=== PATIENT | female | born 1940 | race Caucasian/White ===

== ENCOUNTER → 2018-07-27 15:14 | Outpatient (CLI) | payer MEDICARE, OTHER, SELFPAY ==
--- NOTE | 2018-07-27 15:18 | BI_ITS ---
MAMMOGRAPHY - BILATERAL SCREENING REASON FOR EXAM: Female, 77 years old. Routine annual screening examination. PERTINENT HISTORY: Non-contributory. Remote bilateral breast biopsies and left excisional breast biopsy. History of mantle cell lymphoma. TECHNIQUE: Digital bilateral breast calixto (3D mammographic acquisition) in the CC and MLO projections. 2-D mediolateral oblique (MLO) and craniocaudad (CC) views of both breasts were obtained. CAD: Full Field Digital Mammography with Computer Added Detection was performed. COMPARISON: Comparison is made with prior examination dated June 10, 2016. FINDINGS: Breast Composition: The breasts are almost entirely fatty. There are no dominant masses or suspicious calcifications. Once again, a tissue clip marker is seen in the retroareolar region of the right breast. No other significant abnormalities are identified. There has been no significant change since the prior study. BI/SCREENING MAMM (CAD), BILAT IMPRESSION: Stable bilateral screening mammogram. Yearly follow-up mammogram recommended. (A) ASSESSMENT CATEGORY: BIRADS Category 2: Benign. A letter regarding these results will be sent to the patient by the facility within 30 days. Approximately 10% of breast cancers are not detected by mammography. A normal mammogram should not delay biopsy of a clinically suspicious abnormality. [id number] Electronically Signed: Javier Walden MD at 13:11 EST Tel [phone], Service support ,
== END ==
PROVIDERS: Family Provider Student in an Organized Health Care Education/Training Program; PCP Student in an Organized Health Care Education/Training Program; Referring Provider Internal Medicine Hematology & Oncology; Visit Provider Internal Medicine Hematology & Oncology
DX: Z12.31 Encounter for screening mammogram for malignant neoplasm of breast (principal)
CPT/HCPCS: 77063; 77067

== ENCOUNTER 2019-05-28 17:42 | Emergency (ER) | payer MEDICARE, OTHER, SELFPAY ==
[2019-05-28 17:43] VITALS: BP 191/99; PULSE 106; RESP 18; TEMP 37.6; O2SAT 97; BMI 38.1
[2019-05-28 18:34] VITALS: O2SAT 98
--- NOTE | 2019-05-28 18:34 | RAD_ITS ---
STUDY: X-RAY CHEST REASON FOR EXAM: Female, 78 years old. Palpitations TECHNIQUE: Single AP portable view of the chest. COMPARISON: 06/20/2017. FINDINGS: The lungs are clear and expanded. There is no demonstrated pleural abnormality. Normal size heart. Normal mediastinum and hakan. Normal visualized pulmonary arteries. Normal visualized aortic arch and descending thoracic aorta. Normal visualized thoracic spine. Normal visualized ribs, clavicles, and shoulders. There is no demonstrated abnormality of the visualized soft tissue structures of the upper abdomen. RAD/Chest 1 View (Portable) IMPRESSION: Normal x-ray examination of the chest. Electronically Signed: Brian Palumbo MD at 18:45 EDT , Service support ,
--- NOTE | 2019-05-28 18:34 | EKG12_ITS ---
Test Reason : PALP Blood Pressure : / mmHG Vent. Rate : 091 BPM Atrial Rate : 091 BPM P-R Int : 148 ms QRS Dur : 084 ms QT Int : 372 ms P-R-T Axes : 075 054 066 degrees QTc Int : 457 ms Normal sinus rhythm Nonspecific ST abnormality Abnormal ECG Confirmed by YAIR FREEMAN ([id number]), senior editor ANGELLA GONG ([id number] on 06/03/2019 3:34:51 PM Referred By: JACEY Confirmed By:YAIR FREEMAN
[2019-05-28 19:11] LABS: Absolute Lymphocyte Count 1.25 X10^3/uL (0.83-4.51); Basophil# 0.02 X10^3/uL; Basophil% 0.4 % (0-1); Eosinophil# 0.11 X10^3/uL; Eosinophils% 2.3 % (0-5); Hematocrit 41.2 % (37-47); Hemoglobin 13.4 g/dL (12.0-15.0); Lymphocyte # 1.25 X10^3/ul (4.0); Lymphocyte % 25.8 % (19-41); Mean Corp Hgb Conc 32.5 g/dL (32-36); Mean Corpuscular Hgb 29.6 pg (27.0-32.0); Mean Corpuscular Volume 91.2 fL (81-99); Mean Platelet Vol. 10.4 fl (6.2-12.0); Monocyte# 0.41 X10^3/uL; Monocyte% 8.5 % (0-10); NRBC Flagged by Analyzer 0 % (0-5); Neutrophil # 3.04 X10^3/uL (2.7-7.7); Neutrophil % 62.8 % (47-70); Platelet Count 143 K/mm3 (150-450); RBC Distribution Width CV 13.7 % (11.6-14.6); RBC Distribution Width SD 46.1 fl (35.1-43.9); Red Blood Count 4.52 M/mm3 (4.2-5.4); White Blood Count 4.8 K/mm3 (4.4-11.0)
[2019-05-28 19:13] LABS: International Normalized Ratio 0.9; Prothrombin Time (Protime)PT. 12.3 SECONDS (11.7-14.9)
[2019-05-28 19:14] LABS: Partial Thromboplast Time 29.7 Seconds (24.1-36.2)
[2019-05-28 19:30] LABS: Anion Gap 7 (5-15); BUN 19 mg/dL (7-18); BUN/Creat Ratio 24.8 RATIO (10-20); Calcium,Total 9.4 mg/dL (8.5-10.1); Chloride 107 mmol/L (98-107); Creatinine, Serum 0.77 mg/dL (0.55-1.02); EST Glomerular Filtration Rate 77 mL/min (>60); Est Glom Filt Rate - Afr Amer 94 mL/min (>60); Estimated Creatinine Clearance 62.75 ml/min; Glucose 86 mg/dL (74-106); Potassium 3.5 mmol/L (3.5-5.1); Sodium Level 142 mmol/L (136-145); Thyroid Stim Hormone (TSH) 0.02 uIU/mL (0.358-3.74)
[2019-05-28 19:58] VITALS: BP 160/65; PULSE 73; RESP 19; O2SAT 94
--- NOTE | 2019-05-28 20:44 | ED.DCSUM_ITS ---
- ER Visit Summary Date of Service: 05/28/19 Chief Complaint: A. fib History of Present Illness: The patient is a 78 F who presents for possible atrial fibrillation. She says that for the past week she has had episodes of palpitations that last up to an hour or an hour and a half. She has had 4 episodes. She saw her doctor who ordered outpatient echocardiogram and cardiac monitoring. She presents today for continued symptoms. She has a history of hypothyroidism and takes Synthroid. She denies any history of coronary disease. She had a stress test 2 years ago which was normal. Physical Examination: Afebrile and vital signs unremarkable except for heart rate of 106. Heart rate is regular and rhythm. Lungs are clear. Abdomen soft. Skin appears normal. Alert and oriented. Test Results: EKG showed sinus rhythm at a rate of [address] changes. CBC, metabolic panel, troponin normal. TSH 0.02. Chest x-ray normal. Emergency Department Course and Treatment: Patient was placed on a monitor. She did not have atrial fibrillation here. I believe she is having palpitations, but will benefit from further work-up. She is not having anything that would require hospitalization. I was concerned given that her TSH was very low. I was concerned that she might be overtreated. I called her PCPs on-call partner, Dr. Coombs. She reviewed the patient's records from their office. It looks like her TSH has been stable for the past 6 days. She had outpatient testing and her thyroid medication was recently decreased. It would likely take several more weeks before she has a change in her TSH. She was advised to follow-up with her PCP tomorrow regarding her thyroid. She will also follow-up as planned for cardiac monitoring and outpatient testing. Return for any new or worsening issues. Treatment Plan: As above Disposition: Discharge Impression: 1. Palpitations 2. Hypothyroidism This note was generated with [employer] dictation software. It may contain incorrect words, spelling, and punctuation that were not noted in review of the chart prior to signing ED Disposition - Plan for ED Patient: Referrals: August Connor DO [Primary Care Provider] -
--- NOTE | 2019-05-28 20:48 | ED.DEP ---
ED Disposition - Plan for ED Patient: Instructions: Palpitations Referrals: August Connor DO [Primary Care Provider] -
== END 2019-05-28 20:55 | disposition home or self-care (01) ==
LOC: ED 18:52
PROVIDERS: Emergency Provider Emergency Medicine; Family Provider Student in an Organized Health Care Education/Training Program; PCP Student in an Organized Health Care Education/Training Program
DX: R00.2 Palpitations (principal); E03.9 Hypothyroidism, unspecified; I10 Essential (primary) hypertension; Z79.899 Other long term (current) drug therapy
CPT/HCPCS: 71045; 80048; 84443; 84484; 85025; 85610; 85730; 93005; 99284; A4216

== ENCOUNTER → 2019-06-07 12:56 | Outpatient (CLI) | payer MEDICARE, OTHER, SELFPAY ==
[2019-05-28 17:43] VITALS: BMI 38.1
--- NOTE | 2019-06-07 12:59 | ECHOD_ITS ---
Reason For Study: Palpitations Procedure This was a 2D Doppler, Color Flow transthoracic echocardiogram. Myocardial strain analysis was performed in this exam to aid in the assessment of cardiac function. Exam performed in department. Left Ventricle Normal size and thickness. The estimated ejection fraction is 55 %. No evidence for diastolic dysfunction. No regional wall motion abnormalities noted. Right Ventricle Normal RV size. Normal systolic function. Atria Normal left atrium. Normal right atrium. No doppler evidence for ASD. Mitral Valve There is no mitral valve stenosis. Trivial mitral valve insufficiency. Tricuspid Valve There is no tricuspid stenosis. Unable to estimate RV systolic pressure due to insufficient tricuspid regurgitant envelope. Trivial tricuspid valve insufficiency. Aortic Valve Trisinus/trileaflet aortic valve. There is no aortic stenosis. Trivial aortic valve insufficiency. Pulmonic Valve There is no pulmonic valvular stenosis. Trivial pulmonic valve insufficiency. Great Vessels Normal aortic root. Pericardium/Pleural No pericardial effusion. MMode/2D Measurements & Calculations LVIDd: 4.5 cm IVSd: 1.0 cm Ao root diam: 3.6 cm LVIDs: 2.7 cm LVPWd: 1.2 cm LA dimension: 3.8 cm RVDd: 3.1 cm FS: 39.2 % LAV(MOD-bp): 43.2 ml LA A4 area: 16.8 cm2 RA A4 area: 8.7 cm2 LAV(MOD-bp) Indexed: 24.1 ml/m2 LAV(MOD-sp2): 40.3 ml LAV(MOD-sp4): 46.9 ml Time Measurements MV dec time: 0.25 sec Doppler Measurements & Calculations MV E max hebert: 73.9 cm/sec Lat Peak E' Hebert: 11.1 cm/sec Med Peak E' Hebert: 7.6 cm/sec MV A max hebert: 124.6 cm/sec E/E' lat: 6.7 E/E' med: 9.7 MV E/A: 0.59 MV V2 max: 132.9 cm/sec MV P1/2t max hebert: 82.8 cm/sec Ao V2 max: 174.3 cm/sec MV max P.1 mmHg MV P1/2t: 90.6 msec Ao max P.2 mmHg MV V2 mean: 58.2 cm/sec MV dec slope: 267.8 cm/sec2 MV mean P.7 mmHg MVA(P1/2t): 2.4 cm2 MV V2 VTI: 27.5 cm LV V1 max: 130.5 cm/sec PA V2 max: 123.3 cm/sec LV V1 max P.8 mmHg PI dec slope: 124.6 cm/sec2 Interpretation Summary The estimated ejection fraction is 55 %. No evidence for diastolic dysfunction. Trivial aortic valve insufficiency. Trivial mitral valve insufficiency. Ordering Physician: August Connor Referring Physician: August Connor Performed By: Joey Moreno RCS
== END ==
PROVIDERS: Family Provider Student in an Organized Health Care Education/Training Program; PCP Student in an Organized Health Care Education/Training Program; Referring Provider Student in an Organized Health Care Education/Training Program; Visit Provider Student in an Organized Health Care Education/Training Program
DX: R00.2 Palpitations (principal)
CPT/HCPCS: 93306

== ENCOUNTER 2019-08-18 01:10 | Emergency (ER) | payer MEDICARE, OTHER, SELFPAY ==
[2019-08-18 01:11] VITALS: BP 197/95; PULSE 67; RESP 16; TEMP 36.6; O2SAT 97; BMI 38.0
--- NOTE | 2019-08-18 01:36 | US_ITS ---
HISTORY: RIGHT ABD PAIN X 9 DAYS WORSE AFTER EATING TECHNIQUE: Ty scale and color doppler imaging was performed of the pancreas, liver, and gallbladder. COMPARISON: A CT scan of the chest was performed on December 22, 2014. It demonstrates part of the appendix, most of the liver, most of the spleen, and an exophytic mass on the right kidney that likely represents a benign cyst. FINDINGS: # of images incl. paperwork: 91 Liver is normal in size and appearance. No gallstones, gallbladder wall thickening or biliary dilatation. Gallbladder wall measures 3 mm. Common bile duct measures 3 mm. No tenderness upon insonation the gallbladder. Visualized pancreas is normal in appearance. The right renal cyst, seen on the CT scan, is again demonstrated. It is diagnostic for a benign simple cyst. The remainder of the right kidney is normal. The cyst measures 3.3 x 4.4 x 3.7 cm. Visualized abdominal aorta has normal caliber. IVC is patent. Hepatopedal flow is present within the central portal vein. US/Abdomen Limited IMPRESSION: Normal Right upper quadrant ultrasound. at 0315 Reported and signed by: Eddy Dan MD Electronically Signed: Eddy Dan MD at 3:14 EST Tel , Service support ,
--- NOTE | 2019-08-18 01:36 | ED.VIS.GEN ---
History of Present Illness Chief Complaint: Abd Pain Narrative: This patient is a 78-year-old female who presents with abdominal pain. This has been progressive over about 9 days. She complains of burning epigastric pain with sharp right upper quadrant and right flank pain. She did see her primary care provider recently who ordered outpatient blood work and schedule an ultrasound which she is not scheduled for until August 26. She is concerned this may be her gallbladder. She reports nausea. Her pain is worse with eating. She has not noted any particular foods that worsen this. No vomiting. No diarrhea. No fevers. She does have a history of mantle cell lymphoma which is in remission Past Medical History - Allergies and Home Meds Allergies/Adverse Reactions: Allergies adhesive tape Adverse Reaction (Verified 08/18/19 01:11) Other SKIN IRRITATION banana Adverse Reaction (Verified 08/18/19 01:11) Upset Stomach PAIN KILLERS Adverse Reaction (Uncoded 08/18/19 01:11) Vomiting Primary Care Physician: August Connor DO [Primary Care Provider] - Past Medical History: - - Mantle cell lymphoma, hypertension, hyperlipidemia Surgical History: hysterectomy Smoking Status: Never smoker - Family History Maternal Family History: Family History (Last Reviewed 06/14/18 @ 10:59 by Maggie Beltran) Sister Pancreatic cancer Mother Leukemia Father Non Hodgkin's lymphoma Family History: Reports: Cancer Paternal Family History: Family History (Last Reviewed 06/14/18 @ 10:59 by Maggie Beltran) Sister Pancreatic cancer Mother Leukemia Father Non Hodgkin's lymphoma Family History: Reports: Cancer Sibling Family History: Family History (Last Reviewed 06/14/18 @ 10:59 by Maggie Beltran) Sister Pancreatic cancer Mother Leukemia Father Non Hodgkin's lymphoma Family History: Reports: Cancer, Heart Disease Review of Systems All systems negative except as indicated General: Denies: Fever Cardiovascular: Denies: Chest pain Respiratory: Denies: Dyspnea Gastrointestinal: Reports: Abdominal pain, Nausea. Denies: Vomiting, Diarrhea Skin: Denies: Rash Neurological: Denies: Headache Hematologic: Denies: Easy bruising Allergy: Denies: Uticaria Physical Exam Vital Signs/Narrative: Vital Signs Temp Pulse Resp BP Pulse Ox 08/18/19 01:11 97.9 F 67 16 197/95 H 97 Inital Vital Signs reviewed: Yes General: Well nourished, Well developed Head: Normocephalic Eyes: EOMI ENT: Moist mucous membranes Neck: Supple Cardiovascular: Regular rate, Regular rhythm Respiratory: No distress, CTA bilaterally Abdomen: Soft, Nontender - No reproducible tenderness on exam, Nondistended. Negative for: Jamison's sign Extremities: Nontender Skin: Normal color Neurological: Alert Psychological: Normal affect Diagnostic/Tx/Re-eval Impressions Abdomen Ultrasound 08/18/19 01:36 IMPRESSION: Normal Right upper quadrant ultrasound. at 0315 Reported and signed by: Eddy Dan MD Electronically Signed: Eddy Dan MD at 3:14 EST Tel , Service support , Abdomen/Pelvis CT 08/18/19 03:19 IMPRESSION: No acute intra-abdominal or pelvic disease. Individualized dose optimization techniques were used for this CT. at 0511 Reported and signed by: Eddy Dan MD Electronically Signed: Eddy Dan MD at 5:10 EST Tel , Service support , 08/18/19 01:36 Abdomen Limited [US] Stat 08/18/19 03:19 CT Abd [Abdomen/Pelvis W IV Cont ONLY] [CT] Stat Laboratory Results 08/18/19 08/18/19 01:45 01:45 WBC 4.5 RBC 4.63 Hgb 13.8 Hct 41.0 MCV 88.6 MCH 29.8 MCHC 33.7 RDW Std Deviation 43.7 RDW Coeff of Clair 13.6 Plt Count 120 L MPV 10.7 Immature Gran % (Auto) 0.200 Neut % (Auto) 72.5 H Lymph % (Auto) 13.0 L Gooding % (Auto) 11.2 H Eos % (Auto) 2.4 Baso % (Auto) 0.7 Absolute Neuts (auto) 3.3 Absolute Lymphs (auto) 0.59 L Nucleated RBC % 0 Sodium 139 Potassium 3.7 Chloride 106 Carbon Dioxide 25.0 Anion Gap 8 BUN 17 Creatinine 0.68 Estim Creat Clear Calc 62.42 Est GFR (MDRD) Af Amer 108 Est GFR (MDRD) Non-Af 89 BUN/Creatinine Ratio 25.1 H Glucose 114 H Calcium 9.6 Total Bilirubin 0.70 AST 23 ALT 32 Alkaline Phosphatase 86 Total Protein 7.2 Albumin 3.7 Globulin 3.5 Albumin/Globulin Ratio 1.1 Lipase 122 - Medical Decision Making Patient was given Toradol and Zofran with improvement in symptoms. Laboratory studies were unremarkable and right upper quadrant ultrasound was normal. Therefore I did also obtain a CT of the abdomen and pelvis for further evaluation which also shows no acute pathology. At this point the etiology of her symptoms is unclear but she does not appear to have acute life-threatening or surgical pathology. She was advised to follow-up as an outpatient. She was discharged. ED Disposition - Plan for ED Patient: Disposition: Home or Assisted Living Diagnosis: Abdominal pain Instructions: ABDOMINAL PAIN, Unknown Cause, (Female) Referrals: August Connor DO [Primary Care Provider] -
[2019-08-18] MEDS: Ondansetron 4 MG/2 ML Vial IV (01:57)
[2019-08-18] MEDS: 0.9% Normal Saline 1,000 ML 999 ML IV (01:57)
[2019-08-18] MEDS: Ketorolac 15 MG/ML Vial IV (01:59)
[2019-08-18 02:00] LABS: Absolute Lymphocyte Count 0.59 X10^3/uL (0.83-4.51); Absolute Neutrophil Count 3.3 X10^3/uL (2.0-7.7); Basophil# 0.03 X10^3/uL; Basophil% 0.7 % (0-1); Eosinophil# 0.11 X10^3/uL; Eosinophils% 2.4 % (0-5); Hemoglobin 13.8 g/dL (12.0-15.0); Lymphocyte # 0.59 X10^3/ul (4.0); Mean Corp Hgb Conc 33.7 g/dL (32-36); Mean Corpuscular Hgb 29.8 pg (27.0-32.0); Mean Corpuscular Volume 88.6 fL (81-99); Mean Platelet Vol. 10.7 fl (6.2-12.0); Monocyte# 0.51 X10^3/uL; Monocyte% 11.2 % (0-10); NRBC Flagged by Analyzer 0 % (0-5); Neutrophil # 3.29 X10^3/uL (2.7-7.7); Neutrophil % 72.5 % (47-70); POSITIVE DIFFERENTIAL YES; Platelet Count 120 K/mm3 (150-450); RBC Distribution Width CV 13.6 % (11.6-14.6); RBC Distribution Width SD 43.7 fl (35.1-43.9); Red Blood Count 4.63 M/mm3 (4.2-5.4); White Blood Count 4.5 K/mm3 (4.4-11.0)
[2019-08-18 02:02] LABS: Differential Indicated SCAN CRITERIA MET
[2019-08-18 02:11] LABS: ALB/GLOB Ratio 1.1 RATIO (0.9-2.4); AST(SGOT) 23 U/L (15-37); Alanine Aminotransfer ALT/SGPT 32 U/L (13-56); Albumin, Serum 3.7 g/dL (3.2-5.0); Alkaline Phosphatase 86 U/L (45-117); Anion Gap 8 (5-15); BUN 17 mg/dL (7-18); BUN/Creat Ratio 25.1 RATIO (10-20); Calcium,Total 9.6 mg/dL (8.5-10.1); Chloride 106 mmol/L (98-107); Creatinine, Serum 0.68 mg/dL (0.55-1.02); EST Glomerular Filtration Rate 89 mL/min (>60); Est Glom Filt Rate - Afr Amer 108 mL/min (>60); Estimated Creatinine Clearance 62.42 ml/min; Globulin 3.5 g/dL (2.2-4.2); Glucose 114 mg/dL (74-106); Lipase 122 U/L (73-393); Potassium 3.7 mmol/L (3.5-5.1); Protein, Total 7.2 g/dL (6.4-8.2); Sodium Level 139 mmol/L (136-145)
--- NOTE | 2019-08-18 03:19 | CT_ITS ---
HISTORY: RIGHT SIDED ABD PAIN X 9 DAYS WITH NAUSEA, HX MANTEL CELL CA, CHF, HTN, FATTY LIVER, PULMONARY HTN TECHNIQUE: Helically acquired images were obtained of the abdomen and pelvis following the intravenous administration of 100 ML of Isovue 300 Iodinated contrast. 2D reformats. No oral contrast was administered. A radiation dose optimization technique was used for this scan. COMPARISON: An abdominal ultrasound was performed [address] scan of the chest was performed on December 21, 2014. That study it extended down just below the adrenal glands. FINDINGS: # of images incl. paperwork: 407 LUNG BASES: Trace age-related fibrotic lung disease with minimal scarring. Borderline cardiomegaly. CT abdomen: Degenerative disc disease in lower lumbar spine facet arthropathy. The gallbladder remains. Liver, spleen, pancreas, and adrenal glands, are normal. An exophytic mass to the right kidney is consistent with a benign simple cyst was demonstrated on the ultrasound. The left kidney is normal. The aorta is diseased with calcific plaque, but without aneurysm or dissection. CT pelvis: No ascites is present. The uterus has been resected. The appendix is normal. Series 2 image 72. The bladder is decompressed. Diverticulosis is present within the sigmoid colon. No bowel obstruction. CT/Abdomen/Pelvis W IV Cont ONLY IMPRESSION: No acute intra-abdominal or pelvic disease. Individualized dose optimization techniques were used for this CT. at 0511 Reported and signed by: Eddy Dan MD Electronically Signed: Eddy Dan MD at 5:10 EST Tel , Service support ,
[2019-08-18 05:41] VITALS: BP 211/82; PULSE 62; RESP 16; O2SAT 94
== END 2019-08-18 05:42 | disposition home or self-care (01) ==
PROVIDERS: Emergency Provider Emergency Medicine; Family Provider Student in an Organized Health Care Education/Training Program; PCP Student in an Organized Health Care Education/Training Program
DX: R10.13 Epigastric pain (principal); R10.11 Right upper quadrant pain; I10 Essential (primary) hypertension
CPT/HCPCS: 74177; 76705; 80053; 83690; 85025; 96361; 96374; 96375; J7030; Q9967; A4216; J2405

== ENCOUNTER 2019-08-18 20:48 | Emergency (ER) | payer MEDICARE, OTHER, SELFPAY ==
[2019-08-18 01:11] VITALS: BMI 38.0
[2019-08-18 20:49] VITALS: BP 153/86; PULSE 68; RESP 16; TEMP 36.8; O2SAT 96; BMI 83.7
--- NOTE | 2019-08-18 23:05 | ED.DCSUM_ITS ---
History of Present Illness Chief Complaint: Abd Pain Informant: Patient Narrative: Stated over the last week or so she has been having upper abdominal pain. It is dullness and achy pain. It is worse with eating foods. Every time she eats she gets worsening pain to this area. She was started on a antacid by her family doctor as an outpatient. She has not had much relief. She is never had a stomach ulcer or gastritis. She does have mantle cell lymphoma that is in remission at this time. She denies any nausea or vomiting or diarrhea. She was seen in the emergency department less than 1 day ago. She had normal lab work right upper quadrant ultrasound and CAT scan of the abdomen pelvis with IV contrast. She was given Toradol at that time. She was discharged to follow-up as an outpatient. 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 She comes back tonight for similar pain that is slightly worse. - Past Medical History (1) Abdominal pain Status: Acute (2) Chest pain Status: Acute (3) Anemia Status: Chronic (4) Mantle cell lymphoma Status: Chronic (5) Thrombocytopenia Status: Chronic Past Medical History - Allergies and Home Meds Allergies/Adverse Reactions: Allergies adhesive tape Adverse Reaction (Verified 08/18/19 20:49) Other SKIN IRRITATION banana Adverse Reaction (Verified 08/18/19 20:49) Upset Stomach PAIN KILLERS Adverse Reaction (Uncoded 08/18/19 20:49) Vomiting Primary Care Physician: August Connor DO [Primary Care Provider] - Prior records reviewed: Yes Past Medical History: - - see Problem list Surgical History: hysterectomy Smoking Status: Never smoker Alcohol: None Drugs: None - Family History Maternal Family History: Family History (Last Reviewed 06/14/18 @ 10:59 by Maggie Beltran) Sister Pancreatic cancer Mother Leukemia Father Non Hodgkin's lymphoma Family History: Reports: Cancer Paternal Family History: Family History (Last Reviewed 06/14/18 @ 10:59 by Maggie Beltran) Sister Pancreatic cancer Mother Leukemia Father Non Hodgkin's lymphoma Family History: Reports: Cancer Sibling Family History: Family History (Last Reviewed 06/14/18 @ 10:59 by Maggie Beltran) Sister Pancreatic cancer Mother Leukemia Father Non Hodgkin's lymphoma Family History: Reports: Cancer, Heart Disease Review of Systems General: Denies: Chills, Fever, Sweats Eyes: Denies: Visual changes - bilaterally, Diplopia ENT: Denies: Rhinorrhea, Sore throat Cardiovascular: Denies: Chest pain, Palpitations Respiratory: Denies: Dyspnea, Cough, Dyspnea on exertion Gastrointestinal: Reports: Abdominal pain. Denies: Nausea, Vomiting, Diarrhea, Melena, Hematochezia Genitourinary: Denies: Dysuria, Hematuria, Frequency Musculoskeletal: Denies: Back pain, Extremity Pain Skin: Denies: Rash, Wounds Neurological: Denies: Headache, Weakness, Numbness Physical Exam Vital Signs/Narrative: Vital Signs Temp Pulse Resp BP Pulse Ox 08/18/19 20:49 98.2 F 68 16 153/86 H 96 General: Well nourished, Well developed, No Acute Distress Head: Normocephalic, Atraumatic Eyes: Perrl, EOMI ENT: Moist mucous membranes, No rhinorrhea Neck: Supple, Nontender Cardiovascular: Regular rate, Regular rhythm, No murmurs Respiratory: No distress, CTA bilaterally, Chest nontender Abdomen: Soft, Nondistended, Normal bowel sounds, Tender - Tender in the epigastric right upper quadrant and left upper quadrant mild in nature.. Negative for: Guarding, Rebound tenderness Back: Nontender, Normal Inspection Extremities: Nontender, No edema Skin: Normal color, No rash Neurological: Alert, Oriented x3, Cranial nerves II-XII grossly intact, Normal Strength, Normal Sensation Psychological: Normal affect, Normal Mood Diagnostic/Tx/Re-eval - Medical Decision Making IV established patient given IV fluids. Repeat lab work obtained. Patient given a GI cocktail. Lab work shows no acute abnormalities. Patient felt much better after treatment. I did reach out to the on-call physician for her oncologist in [place]. They did not know her case. The patient will follow-up with her finish inspector and roofer applicator as an outpatient and will use [employer]. At this time I think she likely has a stomach ulcer versus gastritis. I do not feel she needs a repeat imaging study. She is nontoxic and will follow-up ED Disposition - Plan for ED Patient: Disposition: Home or Assisted Living Diagnosis: Epigastric abdominal pain Instructions: ABDOMINAL PAIN, Unknown Cause, (Female) Referrals: August Connor DO [Primary Care Provider] -
[2019-08-18] MEDS: 0.9% Normal Saline 1,000 ML 125 ML IV (23:16)
[2019-08-18] MEDS: Mag Hydrox/Al Hydrox/Simeth 30 ML UDC PO (23:16)
[2019-08-18 23:26] LABS: Anion Gap 8 (5-15); BUN 11 mg/dL (7-18); BUN/Creat Ratio 14.6 RATIO (10-20); Calcium,Total 9.7 mg/dL (8.5-10.1); Chloride 100 mmol/L (98-107); Creatinine, Serum 0.75 mg/dL (0.55-1.02); EST Glomerular Filtration Rate 79 mL/min (>60); Est Glom Filt Rate - Afr Amer 96 mL/min (>60); Estimated Creatinine Clearance 137.61 ml/min; Glucose 121 mg/dL (74-106); Potassium 3.6 mmol/L (3.5-5.1); Sodium Level 134 mmol/L (136-145)
[2019-08-18 23:28] LABS: Absolute Lymphocyte Count 0.38 X10^3/uL (0.83-4.51); Absolute Neutrophil Count 3.5 X10^3/uL (2.0-7.7); Basophil# 0.01 X10^3/uL; Basophil% 0.2 % (0-1); Eosinophil# 0.08 X10^3/uL; Eosinophils% 1.8 % (0-5); Hematocrit 40.8 % (37-47); Hemoglobin 13.7 g/dL (12.0-15.0); Lymphocyte # 0.38 X10^3/ul (4.0); Lymphocyte % 8.4 % (19-41); Mean Corp Hgb Conc 33.6 g/dL (32-36); Mean Corpuscular Hgb 29.5 pg (27.0-32.0); Mean Corpuscular Volume 87.9 fL (81-99); Mean Platelet Vol. 11.2 fl (6.2-12.0); Monocyte# 0.56 X10^3/uL; Monocyte% 12.4 % (0-10); NRBC Flagged by Analyzer 0 % (0-5); Neutrophil # 3.47 X10^3/uL (2.7-7.7); Neutrophil % 77.2 % (47-70); POSITIVE DIFFERENTIAL YES; Platelet Count 126 K/mm3 (150-450); RBC Distribution Width CV 13.4 % (11.6-14.6); RBC Distribution Width SD 43.4 fl (35.1-43.9); Red Blood Count 4.64 M/mm3 (4.2-5.4); White Blood Count 4.5 K/mm3 (4.4-11.0)
[2019-08-18 23:31] LABS: Differential Indicated SCAN CRITERIA MET
[2019-08-18 23:52] LABS: Differential Comment SCANNED
[2019-08-18 23:58] VITALS: BP 144/56; PULSE 87; RESP 19; O2SAT 97
[2019-08-19 00:10] VITALS: BP 132/79; PULSE 78; RESP 19; O2SAT 98
== END 2019-08-19 00:10 | disposition home or self-care (01) ==
PROVIDERS: Emergency Provider Emergency Medicine; Family Provider Student in an Organized Health Care Education/Training Program; PCP Student in an Organized Health Care Education/Training Program
DX: R10.13 Epigastric pain (principal); R10.11 Right upper quadrant pain; R10.12 Left upper quadrant pain; I10 Essential (primary) hypertension; D64.9 Anemia, unspecified; D69.6 Thrombocytopenia, unspecified
CPT/HCPCS: 74177; 76705; 80048; 80053; 83690; 85025; 96361; 96374; 96375; 99283; 99285; J7030; Q9967; A4216; J2405

== ENCOUNTER 2019-08-19 10:34 | Inpatient (IN) | payer MEDICARE, OTHER, SELFPAY ==
[2019-08-18 20:49] VITALS: BMI 83.7
[2019-08-19] VITALS (15 sets, daily range): BP systolic 168–230; BP diastolic 64–92; PULSE 56–70; RESP 12–63; TEMP 36.2–37; O2SAT 94–100; BMI 38.0; BMI 36.6; BMI 36.7
--- NOTE | 2019-08-19 10:40 | ED.RN ---
DAUGHTER APPROACHES TRIAGE DESK STATING THAT PATIENT IS HAVING VISUAL CHANGES, NURSING AWARE.
--- NOTE | 2019-08-19 11:12 | EKG12_ITS ---
Test Reason : WEAKNESS Blood Pressure : / mmHG Vent. Rate : 056 BPM Atrial Rate : 056 BPM P-R Int : 158 ms QRS Dur : 094 ms QT Int : 474 ms P-R-T Axes : 032 -01 016 degrees QTc Int : 457 ms Sinus bradycardia Poor R- wave progression Confirmed by ILYA AGUSTIN, WING ([id number]), purchasing expeditor ZACHARY MCNALLY ([id number]) on 08/22/2019 11:08:57 AM Referred By: Hannah Forrest Confirmed By:WING CARABALLO MD
--- NOTE | 2019-08-19 11:13 | ED.VIS.GEN ---
History of Present Illness Chief Complaint: Abd Pain Informant: Patient, Family Onset: Weeks Context: Gradual Onset Timing: Waxes and wanes Current Severity: Mild Maximum Severity: Moderate Narrative: Patient presents with upper abdominal pain since the . Patient has been seen in the ER twice in the last 48 hours. It is felt that she likely had an ulcer or gastritis and would need an EGD. Patient has Zofran at home. She was given a GI cocktail in the ER last night and states she took Mylanta after she got home but vomited it back up. She was unable to keep her medications or breakfast down this morning. She states overall she feels very weak. - Past Medical History (1) Epigastric abdominal pain Status: Chronic (2) Anemia Status: Chronic (3) Mantle cell lymphoma Status: Chronic (4) Thrombocytopenia Status: Chronic Past Medical History - Allergies and Home Meds Allergies/Adverse Reactions: Allergies adhesive tape Adverse Reaction (Verified 08/19/19 10:35) Other SKIN IRRITATION banana Adverse Reaction (Verified 08/19/19 10:35) Upset Stomach PAIN KILLERS Adverse Reaction (Uncoded 08/19/19 10:35) Vomiting Primary Care Physician: August Connor DO [Primary Care Provider] - Prior records reviewed: Yes Surgical History: hysterectomy Lives: Spouse/ Significant Other Smoking Status: Never smoker - Family History Maternal Family History: Family History (Last Reviewed 06/14/18 @ 10:59 by Maggie Beltran) Sister Pancreatic cancer Mother Leukemia Father Non Hodgkin's lymphoma Family History: Reports: Cancer Paternal Family History: Family History (Last Reviewed 06/14/18 @ 10:59 by Maggie Beltran) Sister Pancreatic cancer Mother Leukemia Father Non Hodgkin's lymphoma Family History: Reports: Cancer Sibling Family History: Family History (Last Reviewed 06/14/18 @ 10:59 by Maggie Beltran) Sister Pancreatic cancer Mother Leukemia Father Non Hodgkin's lymphoma Family History: Reports: Cancer, Heart Disease Review of Systems General: Denies: Chills, Fever Eyes: Denies: Visual changes - bilaterally ENT: Denies: Bilateral ear pain Cardiovascular: Denies: Chest pain Respiratory: Denies: Dyspnea, Cough Gastrointestinal: Reports: Abdominal pain, Nausea, Vomiting Skin: Denies: Rash Neurological: Denies: Headache Hematologic: Denies: Easy bruising Allergy: Denies: Uticaria Physical Exam Vital Signs/Narrative: Vital Signs Temp Pulse Resp BP Pulse Ox 08/19/19 10:36 97.2 F L 70 17 196/92 H 99 Inital Vital Signs reviewed: Yes General: Well nourished, Well developed Head: Normocephalic ENT: Moist mucous membranes Neck: Supple Cardiovascular: Regular rate, Regular rhythm Respiratory: No distress, CTA bilaterally Abdomen: Soft, Tender - Mild epigastric tenderness to palpation. Back: Nontender Extremities: Nontender Skin: Normal color, No rash Neurological: Alert, Oriented x3 Psychological: Normal affect Diagnostic/Tx/Re-eval Laboratory Results 08/19/19 08/19/19 11:25 11:25 WBC 4.3 L RBC 4.67 Hgb 14.0 Hct 40.5 MCV 86.7 MCH 30.0 MCHC 34.6 RDW Std Deviation 42.0 RDW Coeff of Clair 13.2 Plt Count 120 L MPV 10.6 Immature Gran % (Auto) 0.200 Neut % (Auto) 81.3 H Lymph % (Auto) 6.7 L [place] % (Auto) 10.6 H Eos % (Auto) 0.7 Baso % (Auto) 0.5 Absolute Neuts (auto) 3.5 Absolute Lymphs (auto) 0.29 L Nucleated RBC % 0 Differential Comment COMMENT Diff Path Review May foll Sodium 136 Potassium 3.3 L Chloride 99 Carbon Dioxide 28.0 Anion Gap 9 BUN 12 Creatinine 0.68 Estim Creat Clear Calc 62.42 Est GFR (MDRD) Af Amer 107 Est GFR (MDRD) Non-Af 88 BUN/Creatinine Ratio 17.5 Glucose 123 H Calcium 9.3 Total Bilirubin 0.90 Direct Bilirubin 0.28 AST 25 ALT 32 Alkaline Phosphatase 86 Total Protein 7.1 Albumin 3.8 Globulin 3.3 Lipase 123 - Medical Decision Making Patient is given IV fluids and Zofran. She is given labetalol for her hypertension. Patient has had now 3 visits in the last 36 hours. I will admit her for intractable vomiting. is very adamant that both her primary care physician as well as her oncologist in [place] wanted the patient to be admitted. I attempted to contact Dr. Riley to see if she would be available to perform an EGD either inpatient or outpatient follow-up. She is currently in surgery and will call me back when available. ED Disposition - Plan for ED Patient: Disposition: Acute Care Hospital [facility] Diagnosis: Intractable vomiting Referrals: August Connor DO [Primary Care Provider] -
[2019-08-19] MEDS: 0.9% Normal Saline 1,000 ML 150 ML IV (11:31)
[2019-08-19 11:39] LABS: Absolute Lymphocyte Count 0.29 X10^3/uL (0.83-4.51); Absolute Neutrophil Count 3.5 X10^3/uL (2.0-7.7); Basophil# 0.02 X10^3/uL; Basophil% 0.5 % (0-1); Eosinophil# 0.03 X10^3/uL; Eosinophils% 0.7 % (0-5); Hematocrit 40.5 % (37-47); Lymphocyte # 0.29 X10^3/ul (4.0); Lymphocyte % 6.7 % (19-41); Mean Corp Hgb Conc 34.6 g/dL (32-36); Mean Corpuscular Volume 86.7 fL (81-99); Mean Platelet Vol. 10.6 fl (6.2-12.0); Monocyte# 0.46 X10^3/uL; Monocyte% 10.6 % (0-10); NRBC Flagged by Analyzer 0 % (0-5); Neutrophil # 3.51 X10^3/uL (2.7-7.7); Neutrophil % 81.3 % (47-70); POSITIVE DIFFERENTIAL YES; Platelet Count 120 K/mm3 (150-450); RBC Distribution Width CV 13.2 % (11.6-14.6); Red Blood Count 4.67 M/mm3 (4.2-5.4); White Blood Count 4.3 K/mm3 (4.4-11.0)
[2019-08-19 11:41] LABS: Differential Indicated SCAN CRITERIA MET
[2019-08-19 11:51] LABS: AST(SGOT) 25 U/L (15-37); Alanine Aminotransfer ALT/SGPT 32 U/L (13-56); Albumin, Serum 3.8 g/dL (3.2-5.0); Alkaline Phosphatase 86 U/L (45-117); Anion Gap 9 (5-15); BUN 12 mg/dL (7-18); BUN/Creat Ratio 17.5 RATIO (10-20); Bilirubin, Direct 0.28 mg/dL (0.00-0.30); Calcium,Total 9.3 mg/dL (8.5-10.1); Chloride 99 mmol/L (98-107); Creatinine, Serum 0.68 mg/dL (0.55-1.02); EST Glomerular Filtration Rate 88 mL/min (>60); Est Glom Filt Rate - Afr Amer 107 mL/min (>60); Estimated Creatinine Clearance 62.42 ml/min; Globulin 3.3 g/dL (2.2-4.2); Glucose 123 mg/dL (74-106); Lipase 123 U/L (73-393); Potassium 3.3 mmol/L (3.5-5.1); Protein, Total 7.1 g/dL (6.4-8.2); Sodium Level 136 mmol/L (136-145)
[2019-08-19] MEDS: Ondansetron 4 MG/2 ML Vial IV (12:52)
--- NOTE | 2019-08-19 13:48 | PCM.HP.STD ---
Problem List (1) Epigastric abdominal pain Status: Acute (2) Intractable vomiting Status: Acute (3) HTN (hypertension) Status: Chronic Qualifiers: Hypertension type: essential hypertension Qualified Code(s): I10 - Essential (primary) hypertension (4) Hypothyroidism Status: Chronic Qualifiers: Hypothyroidism type: unspecified Qualified Code(s): E03.9 - Hypothyroidism, unspecified (5) HLD (hyperlipidemia) Status: Chronic Qualifiers: Hyperlipidemia type: unspecified Qualified Code(s): E78.5 - Hyperlipidemia, unspecified (6) Thrombocytopenia Status: Chronic (7) Anemia Status: Chronic Qualifiers: Anemia type: unspecified type Qualified Code(s): D64.9 - Anemia, unspecified (8) Mantle cell lymphoma Status: Chronic Qualifiers: Lymphoma site: unspecified region Qualified Code(s): C83.10 - Mantle cell lymphoma, unspecified site History of Present Illness Date of Admission: 08/19/19 Chief Complaint: Abdominal pain/N/V The patient is a 78 y/o F w/ PMHx: Rosacea, ZABRINA, Rheumatoid Arthritis, Hypothyroidism, HTN, HLD, Chronic anemia, Hx Splenomegaly resolved on recent CT A/P, Chronic Thrombocytopenia, Hx Mantle cell lymphoma in remission following w/ Hem/Onc in [place] at [place] (Dr. Villalta cell [phone]) who presents to the [facility] ED on 08/19/19 with history of ongoing epigastric abdominal pain, described as intermittently severe, aching and occasional sharp stabbing pains, ranging from 6-10/10 in severity, currently 10/10, with associated nausea with occasionally related emesis, worse with attempted food or medication intake with no associated fevers or chills nor diarrhea. Patient has now been into the ED for similar complaint 2x in the last 36 hours and notes symptoms are worsening. She does not that mylanta has improved her symptoms. Work-up in the ED included T 97.2, heart rate 70, BP initially 196/92, respiratory rate 17, 99% on room air, CBC with WBC 4.3, hemoglobin 14, platelet 120 with no market left shift, CMP with potassium 3.3, glucose 123 otherwise unremarkable, lipase 123. In the ED patient ministered Zofran as well as a total of 30 mg IV labetalol, normal saline. From review of records patient had recent CT abdomen pelvis on 08/18/2019 with noted IV contrast with no acute intra-abdominal or pelvic process. ED discussed case with Dr. Riley with intention for EGD. Also, per family and patient request, contacted her oncologist in [place] and discussed current presentation with planned EGD. Given patient history of mantle cell lymphoma which can metastasize to the GI tract he requested LDH and uric acid level be obtained as a crude marker. He also requested update following endoscopy. Past Medical History Past Medical History (Chronic Problems): Chronic Problems (Last Reviewed 06/14/18 @ 10:59 by Maggie Beltran) HTN (hypertension) (Chronic) Hypothyroidism (Chronic) HLD (hyperlipidemia) (Chronic) Thrombocytopenia (Chronic) Anemia (Chronic) Mantle cell lymphoma (Chronic) Medical History: Medical History (Last Reviewed 06/14/18 @ 10:59 by Maggie Beltran) Thrombocytopenia (Chronic) D69.6 Anemia (Chronic) D64.9 Mantle cell lymphoma (Chronic) C83.10 History of hysterectomy Z90.710 Hyperlipidemia E78.5 Hypothyroidism E03.9 Lymphadenopathy R59.1 Macular degeneration H35.30 Rheumatoid arthritis M06.9 Rosacea L71.9 Sleep apnea G47.30 Splenomegaly R16.1 Hypertension I10 Allergies adhesive tape Adverse Reaction (Verified 08/19/19 10:35) Other SKIN IRRITATION banana Adverse Reaction (Verified 08/19/19 10:35) Upset Stomach PAIN KILLERS Adverse Reaction (Uncoded 08/19/19 10:35) Vomiting Home Medications: Ambulatory Orders Medication Instructions Recorded Metoprolol(XL)Succ [Toprol Xl 50 mg PO BID 12/21/14 (Beta Jesse)] Atorvastatin Calcium 10 mg PO QHS 08/18/19 Hydrochlorothiazide 12.5 mg PO DAILY 08/18/19 Omeprazole 20 mg PO DAILY 08/18/19 Levothyroxine Sodium 112 mcg PO MOTUWETHFR 08/19/19 Liothyronine Sodium [Cytomel] 25 mcg PO QODAY 08/19/19 Surgical History: Surgical History (Last Reviewed 06/14/18 @ 10:59 by Maggie Beltran) History of breast biopsy Z98.890 Surgical History: hysterectomy, tonsillectomy Psychiatric History: No pertinent psych hx 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 Lives: Spouse/ Significant Other Smoking Status: Never smoker Tobacco Use: Non-smoker Alcohol: None Drugs: None - *Family History Maternal Family History: Family History (Last Reviewed 06/14/18 @ 10:59 by Maggie Beltran) Sister Pancreatic cancer Mother Leukemia Father Non Hodgkin's lymphoma History Items: Cancer Paternal Family History: Family History (Last Reviewed 06/14/18 @ 10:59 by Maggie Beltran) Sister Pancreatic cancer Mother Leukemia Father Non Hodgkin's lymphoma History Items: Cancer Sibling Family History: Family History (Last Reviewed 06/14/18 @ 10:59 by Maggie Beltran) Sister Pancreatic cancer Mother Leukemia Father Non Hodgkin's lymphoma History Items: Cancer, Heart Disease Review of Systems Constitutional: Reports: Anorexia, Malaise, Weakness, Fatigue. Denies: Chills, Fever, Weight Change HEENT: Denies: Head Aches, Sinus Congestion, Sinus Drainage Cardiovascular: Denies: Chest Pain, Palpitations Respiratory: Denies: Cough, Shortness of breath at rest, Sputum production Gastrointestinal: Reports: Abdominal Pain, Nausea, Vomiting Genitourinary: Denies: Dysuria Musculoskeletal: Reports: Joint Pain. Denies: Joint Tenderness Skin: Denies: Rash, Wounds Neurological: Denies: Numbness, Tingling, Focal weakness Psychiatric: Denies: Anxiety, Depression, Homicidal Ideations, Suicidal Ideations Hematologic/ Lymphatic: Reports: Anemia, Easy Bruising, Easy Bleeding VTE Information - Inpt Only VTE Present on Admission: No VTE Mechan Device Prophylaxis: SCD's VTE Pharm Prophylaxis ordered?: No Reason prophylaxis not ordered:: Medical Contraindication Patient Problems: Active and Suspected Problems (Last Reviewed 06/14/18 @ 10:59 by Maggie Beltran) Intractable vomiting (Acute) Subjective: Seated upright in ED bed, fatigued and ill-appearing, uncomfortable appearing. Objective: Physical Examination: General: awake, alert, oriented x 3 and cooperative, seated upright in bed in no apparent distress but uncomfortable appearing, notes some improvement following Mylanta but ongoing epigastric discomfort. Skin: normal color, turgor, no icterus, cyanosis. HEENT: AT/NC, EOMI, PERRLA, dry MM, no carotid bruits or JVD noted. Lungs: CTA bilaterally, moderate effort, moderate decrease BL bases, no rales, ronchi or wheezing. Heart: Regular rate and rhythm; no gallop, rub audible. Abdomen: soft, epigastric discomfort with palpation but no rebound or guarding, no market distention evident, distant mildly hyperactive bowel sounds, no HSM. Extremities: no cyanosis, clubbing, or edema. Neurological: patient awake, alert, oriented x 3; cognitive function intact; pupils equally reactive to light and accomodation; cranial nerves II-XII grossly normal, moving all 4 extremities, no focal deficits, strength severely globally decreased secondary to acute presentation. Psychiatric: affect appears flat, fatigued, no acute evidence of depressive or anxiety feelings. - Physical Exam Vitals/I&O's: Vital Signs Temp Pulse Resp BP Pulse Ox 97.2 F L 56 L 17 193/88 H 98 08/19/19 10:36 08/19/19 13:41 08/19/19 13:07 08/19/19 13:41 08/19/19 13:07 Oxygen Flow Rate (L/min) 2 Oxygen Delivery Method Nasal Cannula Weight: 188 lb Body Mass Index (BMI) 38.0 Laboratory Results 08/19/19 11:25: WBC 4.3 L, RBC 4.67, Hgb 14.0, Hct 40.5, MCV 86.7, MCH 30.0, MCHC 34.6, RDW Std Deviation 42.0, RDW Coeff of Clair 13.2, Plt Count 120 L, MPV 10.6, Immature Gran % (Auto) 0.200, Neut % (Auto) 81.3 H, Lymph % (Auto) 6.7 L, [place] % (Auto) 10.6 H, Eos % (Auto) 0.7, Baso % (Auto) 0.5, Absolute Neuts (auto) 3.5, Absolute Lymphs (auto) 0.29 L, Nucleated RBC % 0, Differential Comment COMMENT, Diff Path Review December08/19/19 11:25: Sodium 136, Potassium 3.3 L, Chloride 99, Carbon Dioxide 28.0, Anion Gap 9, BUN 12, Creatinine 0.68, Estim Creat Clear Calc 62.42, Est GFR (MDRD) Af Amer 107, Est GFR (MDRD) Non-Af 88, BUN/Creatinine Ratio 17.5, Glucose 123 H, Calcium 9.3, Total Bilirubin 0.90, Direct Bilirubin 0.28, AST 25, ALT 32, Alkaline Phosphatase 86, Total Protein 7.1, Albumin 3.8, Globulin 3.3, Lipase 123 Current Medications Sodium Chloride () 1,000 mls @ 150 mls/hr IV .Q6H40M TOLU Last Admin: 08/19/19 11:31 Dose: 150 mls/hr Documented by: Assessment/Plan All Active Problems (Last Reviewed 06/14/18 @ 10:59 by Maggie Beltran) Epigastric abdominal pain (Acute) Intractable vomiting (Acute) Chest pain (Acute) The patient is a 78 y/o F w/ PMHx: Rosacea, ZABRINA, Rheumatoid Arthritis, Hypothyroidism, HTN, HLD, Chronic anemia, Hx Splenomegaly resolved on recent CT A/P, Chronic Thrombocytopenia, Hx Mantle cell lymphoma in remission who presents to the [facility] ED on 08/19/19 with history of ongoing epigastric abdominal pain, described as intermittently severe, aching and occasional sharp stabbing pains, ranging from 6-10/10 in severity, currently 10/10, with associated nausea with occasionally related emesis, worse with attempted food or medication intake. 1. Intractable abdominal pain with nausea and emesis, unclear etiology, suspected Acute Gastritis versus Ulcer (Gastric/Duodenal): We will admit to medical surgical floor, maintain n.p.o. status except sips water with medications, initiate IV Protonix with dose now, continue gentle hydration pending general surgery evaluation for upper endoscopy given unremarkable CT abdomen pelvis suspect likely etiology. LDH and uric acid pending. Dr. Riley consulted as noted. 2. Hypokalemia: Admission K+ 3.3, supplementation given, repeat level in AM. 3. Mantle cell lymphoma: Noted mature B cell non-Hodgkin lymphomas, following with oncology as noted in [place], continued follow-up and evaluation treatment with next visit August 2019. Uric acid and LDH requested following discussions with her oncologist. Will plan follow-up call once endoscopy performed and LDH/uric acid resulted per his request (Dr. Villalta cell [phone]). 4. History of anemia: Admission hemoglobin 14, not on supplementation, has required transfusion in the past primarily with active treatment for #3, currently remission, continue to trend outpatient. 5. Thrombocytopenia: Admission platelet 120, similar to baseline, continue to trend. 6. Hypertension: Continue home regimen including metoprolol, given acute presentation with abdominal pain, nausea, emesis will hold temporarily hydrochlorothiazide, PRN hydralazine. 7. Hyperlipidemia: Continue home statin regimen. 8. Hypothyroidism: Continue home synthroid regimen. 9. GERD: Maintained on IV PPI. 10. DVT Prophylaxis: SCDs, given acute presentation #1 with suspected gastritis/ulcer will defer chemoprophylaxis. 11. CODE status: Patient's and family are present, healthcare power of state's attorney, living will is currently in place. Discussed CODE status at length including difference between FULL code, DNR-CCA and DNR-CC status. Following discussions about the differences in these status, requested continued full CODE STATUS. Advanced Care Planning Face to Face Time: 16 minutes. Code Visit Inpatient E&M: 55158 Init Hosp L3 Procedures: 04992 Advncd Care Plan 30 Min
[2019-08-19 15:37] LABS: LDH 230 U/L (84-246); Uric Acid 3.6 mg/dL (2.6-6.0)
[2019-08-19] MEDS: 0.9% Normal Saline 1,000 ML 125 ML IV (17:33)
[2019-08-19] MEDS: 0.9% Saline Lock 10 ML Syringe IV ×3 (17:34→20:46)
[2019-08-19] MEDS: Enalaprilat 1.25 MG/ML Vial 0.625 MG IV (17:34)
[2019-08-19 18:01] LABS: Magnesium 1.6 mg/dL (1.6-2.6); Phosphorus 2.9 mg/dL (2.5-4.9)
--- NOTE | 2019-08-19 18:21 | PCM.CONS.B ---
- Consult Date of Consult: 08/19/19 - Reason for Consult CC: abdominal pain, nausea/emesis - request by hospitalist service for evaluation HISTORY OF PRESENT ILLNESS: Adia Haywood is a 78 year old WF with known stage 4 mantle cell lymphoma who presents with upper abdominal pain, nausea/emesis, and bloating. Had bowel movement yesterday, but does not recall last time she passed flatus. She has noted stomach pain since August 08. Refers that it started after eating spaghetti and ice cream w/ nuts. She states that she messaged her oncologist re: this, in concern over the return of CA. (hx of mantle cell lymphoma). Describes pain in the epigastric area and with some initial twinges in the RUQ. Was having some constipation that improved with laxatives. No hematochezia/melena. Now in the past day, she has had persistent nausea and emesis. Denies fevers, has had some chills, denies sweats. Had a colonoscopy about 3 years ago, denies previous EGD, denies previous PUD. Was on chemotherapy, but was reported to be in remission for [address] scan - yesterday - right kidney cyst, no ascites, sigmoid diverticulosis, uterus absent, no evidence of bowel obstruction, normal US ? ? PAST MEDICAL HISTORY: ? Elevated LFTs ? ? Essential hypertension, benign ? ? Fatty infiltration of liver ? ? Lymphoma (HCC) 12/06/2017 - mantle cell - stage 4 ? Macular degeneration (senile) of retina, unspecified ? ? [facility], Dr. Schmidt ? OA (osteoarthritis) ? ? Other and unspecified hyperlipidemia ? ? Rheumatoid arthritis(714.0) ? ? Rhinitis 07/04/2012 ? Sciatica ? ? Thrombocytopenia (HCC) ? ? Unspecified hypothyroidism ? PAST SURGICAL HISTORY COLONOSCOP W/ OR W/O [facility] SPEC COLONOSCOPY 2010 Hysterectomy ? ALLERGIES Adhesive; Banana MEDICATIONS ? atorvastatin (LIPITOR) 10 mg tablet Take 1 tablet by mouth daily at bedtime. For cholesterol. ? metoprolol tartrate, short acting, (LOPRESSOR) 50 mg tablet Take 1 tablet by mouth twice daily. ? liothyronine (CYTOMEL) 25 mcg tablet Take one tablet by mouth every other day. ? levothyroxine (SYNTHROID) 112 mcg tablet Take 1 tablet by mouth daily x 5 days a week. ? metroNIDAZOLE 1 % gel Apply 1 application to affected area once daily. Location: face ? FAMILY HISTORY ? Cancer Mother? Leukemia ? Cancer Father? Non hodgkins Lymphoma ? Cancer Sister? Pancreatic ? SOCIAL HISTORY Tobacco Use ? Smoking status: Never Smoker ? Smokeless tobacco: Never Used Substance Use Topics ? Alcohol use: No ? Drug use: No REVIEW OF SYSTEMS: General - denies fevers HEENT - denies infections/trauma Respiratory - denies coughing up blood Cardiac - denies chest pain - known kidney cyst as per CT GI - see above Heme/onc - known Mantle cell lymphoma Psych - no major mood changes ? PHYSICAL EXAM: BP 189/90 Pulse 68 Resp 16 Wt 188 lb Ht: 4'11 General Appearance: Well appearing, alert, in no acute distress, well-hydrated, well nourished.. Skin: Skin color, texture, turgor normal, no suspicious rashes or lesions. Head: Normocephalic, no masses, lesions, tenderness or abnormalities. Eyes: Anicteric sclera. Extraocular movements are intact. . Neck: Supple, no adenopathy Lungs: lungs clear to auscultation. No wheezing, rhonchi, rales. Heart: RRR without murmur, gallop, or rubs. No ectopy. Abdomen: soft and benign, tender to palpation in the upper abdomen but no peritoneal signs Neurologic: non focal Labs - WBC 4.3K with left shift of differential, Hct 40.5, LFTs normal ? ? ASSESSMENT/PLAN: - Upper abdominal pain - plan EGD, possible biopsies tomorrow - nausea/emesis - see above - abdominal bloating - see above I have discussed risks of procedure with patient and her family who is present with her. I have explained the risks, including but not limited to: infection, bleeding, perforation of the GI tract, etc. - she understands. She wishes to proceed. I have answered all their questions and they have no further questions.
[2019-08-19] MEDS: Potassium Chloride 10mEq/100mL 10 MEQ/100 ML IV.SOLN. 100 MEQ IV BOLUS ×4 (18:24→22:00)
[2019-08-19] MEDS: Metoprolol Tartrate 50 MG Tablet PO (19:37)
[2019-08-19] MEDS: hydrALAZINE 20 MG/ML Vial 10 MG IV (19:37)
[2019-08-19] MEDS: Morphine 2 MG/ML Syringe IV (20:46)
[2019-08-19] MEDS: proMETHazine 25 MG/ML Syringe 6.25 MG IV (20:47)
[2019-08-20] VITALS (13 sets, daily range): BP systolic 110–180; BP diastolic 54–84; PULSE 60–95; RESP 16–18; TEMP 36.6–37.2; O2SAT 94–98
[2019-08-20] MEDS: 0.9% Normal Saline 1,000 ML 125 ML IV ×3 (02:02→17:02)
[2019-08-20] MEDS: hydrALAZINE 20 MG/ML Vial 10 MG IV ×2 (02:03→14:55)
[2019-08-20 05:57] LABS: Absolute Lymphocyte Count 0.51 X10^3/uL (0.83-4.51); Absolute Neutrophil Count 3.7 X10^3/uL (2.0-7.7); Basophil# 0.02 X10^3/uL; Basophil% 0.4 % (0-1); Eosinophil# 0.03 X10^3/uL; Eosinophils% 0.6 % (0-5); Hematocrit 37.4 % (37-47); Hemoglobin 13.1 g/dL (12.0-15.0); Lymphocyte # 0.51 X10^3/ul (4.0); Lymphocyte % 10.5 % (19-41); Mean Corpuscular Volume 88.6 fL (81-99); Mean Platelet Vol. 11.3 fl (6.2-12.0); Monocyte# 0.62 X10^3/uL; Monocyte% 12.8 % (0-10); NRBC Flagged by Analyzer 0 % (0-5); Neutrophil # 3.66 X10^3/uL (2.7-7.7); Neutrophil % 75.5 % (47-70); POSITIVE DIFFERENTIAL YES; Platelet Count 114 K/mm3 (150-450); RBC Distribution Width CV 13.4 % (11.6-14.6); RBC Distribution Width SD 43.5 fl (35.1-43.9); Red Blood Count 4.22 M/mm3 (4.2-5.4); White Blood Count 4.9 K/mm3 (4.4-11.0)
[2019-08-20 06:10] LABS: AST(SGOT) 25 U/L (15-37); Alanine Aminotransfer ALT/SGPT 29 U/L (13-56); Albumin, Serum 3.1 g/dL (3.2-5.0); Alkaline Phosphatase 77 U/L (45-117); Anion Gap 6 (5-15); BUN 10 mg/dL (7-18); BUN/Creat Ratio 16.8 RATIO (10-20); Calcium,Total 8.3 mg/dL (8.5-10.1); Chloride 103 mmol/L (98-107); EST Glomerular Filtration Rate 104 mL/min (>60); Est Glom Filt Rate - Afr Amer 125 mL/min (>60); Estimated Creatinine Clearance 60.29 ml/min; Glucose 105 mg/dL (74-106); Potassium 3.6 mmol/L (3.5-5.1); Protein, Total 6.1 g/dL (6.4-8.2); Sodium Level 137 mmol/L (136-145)
[2019-08-20 06:16] LABS: Differential Indicated SCAN CRITERIA MET
[2019-08-20 07:11] LABS: Platelet Estimate SLT DEC (ADEQ)
[2019-08-20 07:12] LABS: Anisocytosis RARE; Red Cell Morphology N CHROM NORMAL (NORM C&C)
--- NOTE | 2019-08-20 12:00 | CASEMGMT ---
Addendum entered by Maco Lockwood 08/20/19 14:14: Pt remains out of room for EGD. Unable to complete RN CM assessment at this time. Original Note: RN CM NOTE: To room to complete RN CM admission assessment. Pt is out of her room at this time for EGD. Will attempt at a later time. Corrina AYALAN RN CM
--- NOTE | 2019-08-20 12:17 | OP.EGD_ITS ---
Patient Name: Adia Haywood Procedure Date: 08/20/2019 11:50 AM Date of : 1940 Age: 78 Procedure: Upper GI endoscopy Indications: Upper abdominal pain, Nausea with vomiting Providers: Corazon Riley MD Medicines: See the Anesthesia note for documentation of the administered medications Patient Profile: Refer to note in patient chart for documentation of history and physical. Complications: No immediate complications. Procedure: Pre-Anesthesia Assessment: - see anesthesia note After obtaining informed consent, the endoscope was passed under direct vision. Throughout the procedure, the patient's blood pressure, pulse, and oxygen saturations were monitored continuously. The gastroscope was introduced through the mouth, and advanced to the third part of duodenum. The upper GI endoscopy was accomplished without difficulty. The patient tolerated the procedure well. Scope In: 12:01:51 PM Scope Out: 12:09:36 PM Total Procedure Duration Time 0 hours 7 minutes 45 seconds Findings: A mild extrinsic deformity was found in the second portion of the duodenum - difficult to bend around. A single 5 to 10 mm pedunculated/sessile (difficult to completey delineate) polyp was found in the third portion of the duodenum. Striped mildly erythematous mucosa without bleeding was found in the gastric antrum. A small hiatal hernia was present. Impression: - Duodenal deformity - tight bend at second portion of duodenum - A single duodenal polyp/nodular mass in third portion of duodenum. - Erythematous mucosa in the antrum. - Small hiatal hernia. - No specimens collected. Recommendation: - Discharge patient to home (ambulatory). - Resume previous diet. - Continue present medications. - Refer to a telecommunications network planner at the next available appointment - for evaluation/biopsy of lesion seen in 3rd portion of duodenum. Procedure Code(s): --- Professional --- 70735, Esophagogastroduodenoscopy, flexible, transoral; diagnostic, including collection of specimen(s) by brushing or washing, when performed (separate procedure) Diagnosis Code(s): --- Professional --- K31.89, Other diseases of stomach and duodenum K31.7, Polyp of stomach and duodenum K44.9, Diaphragmatic hernia without obstruction or gangrene R10.10, Upper abdominal pain, unspecified R11.2, Nausea with vomiting, unspecified CPT copyright 2017 [employer]. All rights reserved. The codes documented in this report are preliminary and upon clinical science consultant review may be revised to meet current compliance requirements. MD Corazon Yuen MD 08/20/2019 12:17:20 PM This report has been signed electronically. Number of Addenda: 0 Note Initiated On: 08/20/2019 11:50 AM
--- NOTE | 2019-08-20 12:39 | PCM.PN.BLA ---
Progress Note EGD done - patient tolerated well. Tight bend at second portion of duodenum, possible nodular lesion noted at third portion of duodenum (not biopsied - inaccessible) Will order UGI to further evaluate. If lesion is present, will need to refer to Gastroenterology for definitive diagnosis - will refer to main [facility] in [place] Discussed with patient's family and Dr. Roberts - her oncologist [place] Vital Signs/Narrative: Vital Signs Temp Pulse Resp BP Pulse Ox 08/20/19 12:29 98.6 F 77 16 124/60 H 97 08/20/19 12:28 82 16 112/61 97 08/20/19 12:23 71 16 114/55 L 97 08/20/19 12:17 97.8 F 75 16 110/54 L 96
[2019-08-20 13:39] LABS: Pathologist Review Reviewed
--- NOTE | 2019-08-20 13:54 | RAD_ITS ---
CLINICAL HISTORY: Female, 78 years old. Patient with abdomen pain, nausea and vomiting. Status post EGD today. Questioned nodule within the third segment of the duodenum. PROCEDURE: Fluoroscopically guided upper GI. Multiple spot images were obtained during the course of the real-time exam. Comment: The clinical question is whether there is a nodule or mass in the third segment of the duodenum. Therefore, half dose crystals and limited quantity of barium were administered so as not to flood the duodenum. FLUOROSCOPY TIME (if supplied): (3.0) minutes/seconds TECHNIQUE: The patient easily and readily swallowed effervescent crystals and various density barium contrast. FINDINGS: The esophageal motility demonstrates a few nonpersistent, tertiary, nonpropulsive mid esophageal contractions. There is no esophageal stricture, web, diverticulum or hiatal hernia. The esophageal mucosal pattern appears unremarkable. Limited gastric evaluation with no gastric intrinsic or extrinsic mass or mass effect. Unremarkable suboptimally distended mucosal pattern. The duodenum is well evaluated on this tailored exam and demonstrates a small descending widemouth diverticulum. There is no stricture. There is no nodule or mass identified. RAD/Upper GI Series Only IMPRESSION: Mild presbyesophagus. Small wide-mouthed descending segment duodenal diverticulum. No evident duodenal nodule or mass. Electronically Signed: Low Lowe MD at 14:34 EST , Service support ,
--- NOTE | 2019-08-20 15:12 | PCM.PN.HOSP ---
Patient Problems: Active and Suspected Problems (Last Reviewed 06/14/18 @ 10:59 by Maggie Beltran) Intractable vomiting (Acute) Reason for Visit: Patient has history of intractable nausea and vomiting even on liquid for about 2 weeks. Patient also complained of abdominal pain since August 08. She has dyspeptic symptoms for about 2 months. She has history of mantle cell lymphoma and is being managed by Dr. Roberts in [place]. Vitals/I&O's: Vital Signs Temp Pulse Resp BP Pulse Ox 98.6 F 63 16 163/70 H 97 08/20/19 12:29 08/20/19 14:55 08/20/19 12:29 08/20/19 14:55 08/20/19 12:29 Oxygen Flow Rate (L/min) 3 Oxygen Delivery Method Nasal Cannula Weight: 181 lb 9.587 oz Body Mass Index (BMI) 36.6 Intake and Output for Last 24 Hours 08/18/19 08/19/19 08/20/19 23:59 23:59 23:59 Intake Total 1510 / 1510 2109 Balance 1510 / 1510 2109 General: Alert, Oriented x3, Cooperative HEENT: Atraumatic, PERRLA, EOMI, Normocephalic Neck: Supple, No JVD, Negative Carotid Bruits Lungs: Clear to auscultation, No rhonchi, No wheeze, No rales, Diminished Cardiovascular: Regular rate, Regular Rhythm, Normal S1, Normal S2, No murmurs Abdomen: Bowel Sounds Present, Soft, Non Tender, Non-Distended Extremities: No edema, Capillary Refill Less than 3 Seconds Skin: No rashes, No breakdown Musculoskeletal: No Tenderness to Palpation of Joints or Extremities, Arthritic Changes Neurological: Cranial nerves II-XII grossly intact, Neuro grossly intact Psych/Mental Status: Normal Affect, Appropriate Laboratory Results 08/19/19 11:25: Diff Path Review Reviewed 08/19/19 11:25: Uric Acid 3.6, Lactate Dehydrogenase 230 08/19/19 11:25: Phosphorus 2.9, Magnesium 1.6 08/20/19 05:16: WBC 4.9, RBC 4.22, Hgb 13.1, Hct 37.4, MCV 88.6, MCH 31.0, MCHC 35.0, RDW Std Deviation 43.5, RDW Coeff of Clair 13.4, Plt Count 114 L, MPV 11.3, Immature Gran % (Auto) 0.200, Neut % (Auto) 75.5 H, Lymph % (Auto) 10.5 L, [place] % (Auto) 12.8 H, Eos % (Auto) 0.6, Baso % (Auto) 0.4, Absolute Neuts (auto) 3.7, Absolute Lymphs (auto) 0.51 L, Nucleated RBC % 0, Differential Comment SEE COMMENT, Platelet Estimate SLT DEC, RBC Morphology N CHROM, Anisocytosis RARE 08/20/19 05:16: Sodium 137, Potassium 3.6, Chloride 103, Carbon Dioxide 28.0, Anion Gap 6, BUN 10, Creatinine 0.60, Estim Creat Clear Calc 60.29, Est GFR (MDRD) Af Amer 125, Est GFR (MDRD) Non-Af 104, BUN/Creatinine Ratio 16.8, Glucose 105, Calcium 8.3 L, Total Bilirubin 0.70, AST 25, ALT 29, Alkaline Phosphatase 77, Total Protein 6.1 L, Albumin 3.1 L, Globulin 3.0, Albumin/Globulin Ratio 1.0 Current Medications Acetaminophen (Tylenol) 650 mg PO Q6H PRN PRN PRN Reason: Non-cardiac pain (4-10/10) Hydrocodone Bitart/Acetaminophen ([place] 5mg-325mg) 1 - 2 tablet PO Q4H PRN PRN PRN Reason: Pain Score 4-10/10 Al Hydroxide/Mg Hydroxide (Mylanta Ii) 15 - 30 ml PO Q4H PRN PRN PRN Reason: INDIGESTION Albuterol Sulfate (Ventolin Aerosols) 2.5 mg INHALATION Q2H PRN PRN PRN Reason: dyspnea, wheezing Atorvastatin Calcium (Lipitor) 10 mg PO QHS [facility] Last Admin: 08/19/19 20:53 Dose: Not Given Documented by: Dextrose (D50w Syringe) 0 gm IV X1 PRN; Protocol PRN Reason: Hypoglycemia Glucagon () 1 mg IM .X1 PRN PRN Reason: Hypoglycemia Guaifenesin (Robitussin) 20 ml PO Q4H PRN PRN PRN Reason: COUGH Hydralazine HCl (Apresoline Iv) 10 mg IV Q4H PRN PRN PRN Reason: SBP > 160 Last Admin: 08/20/19 14:55 Dose: 10 mg Documented by: Sodium Chloride () 1,000 mls @ 125 mls/hr IV .Q8H [facility] Last Admin: 08/20/19 10:06 Dose: 125 mls/hr Documented by: Pantoprazole Sodium 40 mg/ (Sodium Chloride) 110 mls @ 330 mls/hr IV Q12 [facility] Last Infusion: 08/20/19 10:30 Dose: Infused Documented by: Sodium Chloride () 250 mls @ 15 mls/hr IV .[id number] PRN PRN Reason: Additional IVPB Infusion Levothyroxine Sodium (Synthroid) 112 mcg PO MOTUWETHFR [facility] Last Admin: 08/20/19 05:33 Dose: Not Given Documented by: Liothyronine Sodium (Cytomel) 25 mcg PO QODAY@0600 [facility] Magnesium Hydroxide (Milk Of Magnesia) 30 ml PO DAILY PRN PRN Reason: Constipation Melatonin (Melatonin) 3 mg PO QHS PRN PRN PRN Reason: INSOMNIA Metoprolol Tartrate (Lopressor (Beta Jesse)) 50 mg PO BID [facility] Last Admin: 08/20/19 10:06 Dose: Not Given Documented by: Morphine Sulfate () 1 - 2 mg IV Q4H PRN PRN PRN Reason: Pain Score 1-10/10 Last Admin: 08/19/19 20:46 Dose: 2 mg Documented by: Nitroglycerin (Nitrostat) 0.4 mg SUBLINGUAL Q5M PRN PRN Reason: CARDIAC/CHEST PAIN Ondansetron HCl (Zofran) 4 mg IV Q8H PRN PRN PRN Reason: NAUSEA/VOMITING Promethazine HCl (Phenergan) 6.25 mg IV Q4H PRN PRN PRN Reason: NAUSEA/VOMITING Last Admin: 08/19/19 20:47 Dose: 6.25 mg Documented by: Sodium Chloride () 10 - 40 ml IV UD PRN PRN Reason: SALINE FLUSH Last Admin: 08/19/19 20:46 Dose: 10 ml Documented by: Throat Lozenges (Cepacol Sore Throat Lozenge) 1 lozenge MUCOUS MEM Q2H PRN PRN PRN Reason: Sore throat or cough STROKE Vital Signs/Narrative: Vital Signs Temp Pulse Resp BP Pulse Ox 08/20/19 14:55 63 163/70 H 08/20/19 12:29 98.6 F 77 16 124/60 H 97 08/20/19 12:28 82 16 112/61 97 08/20/19 12:23 71 16 114/55 L 97 08/20/19 12:17 97.8 F 75 16 110/54 L 96 Medical Necessity - Tobacco Use Smoking Status: Never smoker Tobacco Use: Non-smoker Assessment/Plan All Active Problems (Last Reviewed 06/14/18 @ 10:59 by Maggie Beltran) Intractable vomiting (Acute) Chest pain (Acute) The patient is a 78 with history of rheumatoid Arthritis, Hypothyroidism, HTN, HLD, Chronic anemia, Hx Splenomegaly, chronic Thrombocytopenia, Hx Mantle cell lymphoma in remission was admitted for ongoing epigastric abdominal pain along with nausea and vomiting for about 2 weeks. 1. Intractable abdominal pain with nausea and emesis, most probably secondary to descending duodenum diverticulum: Patient is being admitted on [facility] floor. Had EGD today which reported as mild extrinsic deformity on the second portion of duodenum, difficult to bend around. Single 5 to 10 mm polyp was found on third portion of duodenum. striped mildly erythematous mucosa without bleeding in gastric antrum. Small hiatus hernia. To further discern duodenal deformity, patient had upper GI series. It is reported a small widemouth descending segment duodenal diverticulum. No evidence of duodenal nodule or mass. 2. Hypokalemia: Admission K+ 3.3, supplementation given, repeat K3.6. Potassium replaced. 3. Mantle cell lymphoma: Noted mature B cell non-Hodgkin lymphomas, following with oncology as noted in [place], continued follow-up and evaluation treatment with next visit August 2019. Dr. Riley discussed the finding with patient's family and Dr. Orta oncologist. Uric acid is normal 3.6, LDH 230. (Dr. Villalta cell [phone]). 4. History of anemia: Currently H&H is stable. 5. Thrombocytopenia: Admission platelet 120, similar to baseline. 6. Hypertension: Continue home regimen including metoprolol, PRN hydralazine. 7. Hyperlipidemia: Continue home statin regimen. 8. Hypothyroidism: Continue home synthroid regimen. 9. GERD: Maintained on IV PPI. 10. DVT Prophylaxis: SCDs, given acute presentation #1 with suspected gastritis/ulcer will defer chemoprophylaxis. 11. CODE status: Full code EGD findings discussed with the patient's family. Clinical Impression(s) from Imaging Studies Upper GI Series 08/20/19 13:54 IMPRESSION: Mild presbyesophagus. Small wide-mouthed descending segment duodenal diverticulum. No evident duodenal nodule or mass. Laboratory Results 08/19/19 11:25: Diff Path Review Reviewed 08/19/19 11:25: Uric Acid 3.6, Lactate Dehydrogenase 230 08/19/19 11:25: Phosphorus 2.9, Magnesium 1.6 08/20/19 05:16: WBC 4.9, RBC 4.22, Hgb 13.1, Hct 37.4, MCV 88.6, MCH 31.0, MCHC 35.0, RDW Std Deviation 43.5, RDW Coeff of Clair 13.4, Plt Count 114 L, MPV 11.3, Immature Gran % (Auto) 0.200, Neut % (Auto) 75.5 H, Lymph % (Auto) 10.5 L, [place] % (Auto) 12.8 H, Eos % (Auto) 0.6, Baso % (Auto) 0.4, Absolute Neuts (auto) 3.7, Absolute Lymphs (auto) 0.51 L, Nucleated RBC % 0, Differential Comment SEE COMMENT, Platelet Estimate SLT DEC, RBC Morphology N CHROM, Anisocytosis RARE 08/20/19 05:16: Sodium 137, Potassium 3.6, Chloride 103, Carbon Dioxide 28.0, Anion Gap 6, BUN 10, Creatinine 0.60, Estim Creat Clear Calc 60.29, Est GFR (MDRD) Af Amer 125, Est GFR (MDRD) Non-Af 104, BUN/Creatinine Ratio 16.8, Glucose 105, Calcium 8.3 L, Total Bilirubin 0.70, AST 25, ALT 29, Alkaline Phosphatase 77, Total Protein 6.1 L, Albumin 3.1 L, Globulin 3.0, Albumin/Globulin Ratio 1.0 Code Visit Inpatient E&M: 42418 Subs Hosp L3
[2019-08-20] MEDS: Morphine 2 MG/ML Syringe IV ×2 (17:01→22:11)
[2019-08-20] MEDS: Potassium Chloride 10mEq/100mL 10 MEQ/100 ML IV.SOLN. 100 MEQ IV BOLUS ×2 (17:02→18:23)
[2019-08-20] MEDS: Ondansetron 4 MG/2 ML Vial IV (17:04)
[2019-08-20] MEDS: Metoprolol Tartrate 50 MG Tablet PO (22:10)
[2019-08-20] MEDS: proMETHazine 25 MG/ML Syringe 6.25 MG IV (22:18)
[2019-08-21] VITALS (8 sets, daily range): BP systolic 164–180; BP diastolic 63–79; PULSE 60–71; RESP 18; TEMP 36.6–37.1; O2SAT 92–97
[2019-08-21] MEDS: 0.9% Normal Saline 1,000 ML 125 ML IV ×2 (01:25→08:36)
[2019-08-21] MEDS: hydrALAZINE 20 MG/ML Vial 10 MG IV (04:04)
[2019-08-21] MEDS: Levothyroxine 112 MCG Tablet PO (05:15)
[2019-08-21 05:28] LABS: Absolute Lymphocyte Count 0.53 X10^3/uL (0.83-4.51); Absolute Neutrophil Count 2.7 X10^3/uL (2.0-7.7); Basophil# 0.02 X10^3/uL; Basophil% 0.5 % (0-1); Eosinophil# 0.05 X10^3/uL; Eosinophils% 1.3 % (0-5); Hematocrit 35.1 % (37-47); Hemoglobin 11.6 g/dL (12.0-15.0); Lymphocyte # 0.53 X10^3/ul (4.0); Lymphocyte % 13.8 % (19-41); Mean Corpuscular Hgb 30.1 pg (27.0-32.0); Mean Corpuscular Volume 90.9 fL (81-99); Mean Platelet Vol. 10.9 fl (6.2-12.0); Monocyte# 0.57 X10^3/uL; Monocyte% 14.9 % (0-10); NRBC Flagged by Analyzer 0 % (0-5); Neutrophil # 2.65 X10^3/uL (2.7-7.7); Neutrophil % 69.2 % (47-70); POSITIVE COUNT YES; POSITIVE DIFFERENTIAL YES; Platelet Count 95 K/mm3 (150-450); RBC Distribution Width CV 13.9 % (11.6-14.6); RBC Distribution Width SD 45.8 fl (35.1-43.9); Red Blood Count 3.86 M/mm3 (4.2-5.4); White Blood Count 3.8 K/mm3 (4.4-11.0)
[2019-08-21 05:47] LABS: Anion Gap 8 (5-15); BUN 9 mg/dL (7-18); BUN/Creat Ratio 16.9 RATIO (10-20); Calcium,Total 8.2 mg/dL (8.5-10.1); Chloride 104 mmol/L (98-107); Creatinine, Serum 0.53 mg/dL (0.55-1.02); EST Glomerular Filtration Rate 118 mL/min (>60); Est Glom Filt Rate - Afr Amer 142 mL/min (>60); Estimated Creatinine Clearance 60.29 ml/min; Glucose 72 mg/dL (74-106); Potassium 3.4 mmol/L (3.5-5.1); Sodium Level 138 mmol/L (136-145)
[2019-08-21 05:51] LABS: Differential Indicated SCAN CRITERIA MET
[2019-08-21 07:23] LABS: Differential Comment SCANNED
[2019-08-21] MEDS: Metoprolol Tartrate 50 MG Tablet PO (08:17)
--- NOTE | 2019-08-21 11:03 | DCINST_ITS ---
- Discharge Diagnoses Current Active Problems: Current Active and Chronic Problems (Last Reviewed 06/14/18 @ 10:59 by Maggie Beltran) Intractable vomiting (Acute) HTN (hypertension) (Chronic) Hypothyroidism (Chronic) HLD (hyperlipidemia) (Chronic) You will use the following diet at home:: Regular - soft diet Your food should be the consistency of: Mechanical soft (ground) Discharge Activity: May Not Drive Call your doctor if you observe: Fever of 101 or Higher, Coldness, Increased Pain, Numbness or Tingling, Inability to have a bowel movement, Using more than one pad per hour, Shortness of breath, Dizziness, Fainting spells, Swelling in t he ankles, Chest pain, Prolonged hiccoughing, Increased palpitations (irregular heartbeat), Calf discomfort, Uncontrolled pain Additional Instructions: Patient is being discharged and she is going to get admitted in [facility]. The patient transport arrangement is being done by his son. He told me the patient will go by report. She will be admitted in [facility] under the care of Zane Evans Allergies/Adverse Reactions: Allergies adhesive tape Adverse Reaction (Verified 08/19/19 17:15) skin irritation SKIN IRRITATION banana Adverse Reaction (Verified 08/19/19 10:35) Upset Stomach PAIN KILLERS Adverse Reaction (Uncoded 08/19/19 10:35) Vomiting Medications to take at Discharge Metoprolol(XL)Succ [Toprol Xl (Beta Jesse)] 50 mg PO BID 12/21/14 Atorvastatin Calcium 10 mg PO QHS 08/18/19 Hydrochlorothiazide 12.5 mg PO DAILY 08/18/19 Levothyroxine Sodium 112 mcg PO MOTUWETHFR 08/19/19 Liothyronine Sodium [Cytomel] 25 mcg PO QODAY 08/19/19 Omeprazole 40 mg PO DAILY #0 08/21/19 Primary Care Physician: August Connor DO [Primary Care Provider] - Test Results: Test results from this visit will be discussed in further detail at your follow- up appointment, if applicable. Please Follow Up With: August Connor DO When: In 2 weeks
--- NOTE | 2019-08-21 11:06 | DS.PCM_ITS ---
Discharge Date and Diagnosis - Problem List Patient Problems: Active and Suspected Problems (Last Reviewed 06/14/18 @ 10:59 by Maggie Beltran) Intractable vomiting (Acute) Date of Admission: 08/19/19 Date of Discharge: 08/21/19 - Primary Discharge Diagnosis Active and Suspected Problems (Last Reviewed 06/14/18 @ 10:59 by Maggie Beltran) Intractable vomiting (Acute) - Secondary Discharge Diagnosis Chronic Problems (Last Reviewed 06/14/18 @ 10:59 by Maggie Beltran) HTN (hypertension) (Chronic) Hypothyroidism (Chronic) HLD (hyperlipidemia) (Chronic) Thrombocytopenia (Chronic) Anemia (Chronic) Mantle cell lymphoma (Chronic) Hospital Course and Treatment Imaging Results: 08/20/19 13:54 Upper GI Series Only [RAD] Urgent Operations: None Summary of Care Provided: The patient is a 78 with history of rheumatoid Arthritis, Hypothyroidism, HTN, HLD, Chronic anemia, Hx Splenomegaly, chronic Thrombocytopenia, Hx Mantle cell lymphoma in remission was admitted for ongoing epigastric abdominal pain along with nausea and vomiting for about 2 weeks. 1. Intractable abdominal pain with nausea and emesis, most probably secondary to descending duodenum diverticulum: Patient is being admitted on [facility]. Had EGD today which reported as mild extrinsic deformity on the second portion of duodenum, difficult to bend around. Single 5 to 10 mm polyp was found on third portion of duodenum. striped mildly erythematous mucosa without bleeding in gastric antrum. Small hiatus hernia. To further discern duodenal deformity, patient had upper GI series. It is reported a small widemouth descending segment duodenal diverticulum. No evidence of duodenal nodule or mass. 08/21/2019: Her GI symptoms have resolved. Patient is able to swallow clear liquid. Earlier patient wanted to get transferred to [facility] and then changed mine to [facility] where his son lives and she gets her oncology care.I Spoke to Dr Zane Amos [phone] and he agreed to accept the patient. He he said he will directly admit the patient when she comes there. The patient's son is going to take care of the transfer process another logistic aspect. Patient further told me that she will get flight to [place]. Dr. Teresa therefore direct admit. 2. Hypokalemia: Admission K+ 3.3, supplementation given, repeat K3.6. Potassium replaced. Repeat K3.4: Potassium replaced. I think her hypokalemia secondary to HCTZ and will need supplemental potassium supplement but she is going to get admitted in [facility] therefore I did not give her potassium supplement prescription. 3. Mantle cell lymphoma: Noted mature B cell non-Hodgkin lymphomas, following with oncology as noted in [place], continued follow-up and evaluation treatment with next visit August 2019. Dr. Riley discussed the finding with patient's family and Dr. Orta oncologist. Uric acid is normal 3.6, LDH 230. (Dr. Villalta cell [phone]). 4. History of anemia: Currently H&H is stable. 5. Thrombocytopenia: Admission platelet 120, similar to baseline. 6. Hypertension: Continue home regimen including metoprolol, PRN hydralazine. 7. Hyperlipidemia: Continue home statin regimen. 8. Hypothyroidism: Continue home synthroid regimen. 9. GERD: Maintained on IV PPI. 10. DVT Prophylaxis: SCDs, given acute presentation #1 with suspected gastritis/ulcer will defer chemoprophylaxis. 11. CODE status: Full code EGD and upper GI series findings discussed with the patient's family including patient's son, and [id number]. Discharge medication reconciliation done. Discharge follow-up instructions completed. Discharge process discussed with the patient and all questions were answered to patient's satisfaction.. Total time spent, exact 35 minutes on discharge meds reconciliation, examination, review of imaging and blood test and discussion with the patient on follow-up instructions. Clinical Impression(s) from Imaging Studies Upper GI Series 08/20/19 13:54 IMPRESSION: Mild presbyesophagus. Small wide-mouthed descending segment duodenal diverticulum. No evident duodenal nodule or mass. Patient Problems: Active and Suspected Problems (Last Reviewed 06/14/18 @ 10:59 by Maggie Beltran) Intractable vomiting (Acute) Subjective: Patient is able to swallow. Denies abdominal pain. No nausea or vomiting. - Physical Exam Vitals/I&O's: Vital Signs Temp Pulse Resp BP Pulse Ox 98.3 F 95 18 178/84 H 96 08/20/19 17:00 08/20/19 17:00 08/20/19 17:00 08/20/19 17:00 08/20/19 17:00 Oxygen Flow Rate (L/min) 1 Oxygen Delivery Method Nasal Cannula Weight: 181 lb 9.587 oz Body Mass Index (BMI) 36.6 Intake and Output for Last 24 Hours 08/18/19 08/19/19 08/20/19 23:59 23:59 23:59 Intake Total 1510 / 1510 3076.67 / 3076.67 Balance 1510 / 1510 3076.67 / 3076.67 General: Alert, Oriented x3, Cooperative HEENT: Atraumatic, PERRLA, EOMI, Normocephalic Oral: No Gingival or Mucosal Lesions/ Ulcerations Neck: Supple, No JVD, Negative Carotid Bruits Lungs: Clear to auscultation, Normal air movement, No rhonchi, No wheeze, No rales Cardiovascular: Regular rate, Regular Rhythm, Normal S2, No murmurs Abdomen: Bowel Sounds Present, Soft, Non Tender, Non-Distended Extremities: No edema, Capillary Refill Less than 3 Seconds Skin: No rashes, No breakdown Musculoskeletal: No Tenderness to Palpation of Joints or Extremities Neurological: Cranial nerves II-XII grossly intact Psych/Mental Status: Normal Affect, Appropriate Laboratory Results 08/19/19 11:25: Diff Path Review Reviewed 08/20/19 05:16: WBC 4.9, RBC 4.22, Hgb 13.1, Hct 37.4, MCV 88.6, MCH 31.0, MCHC 35.0, RDW Std Deviation 43.5, RDW Coeff of Clair 13.4, Plt Count 114 L, MPV 11.3, Immature Gran % (Auto) 0.200, Neut % (Auto) 75.5 H, Lymph % (Auto) 10.5 L, [place] % (Auto) 12.8 H, Eos % (Auto) 0.6, Baso % (Auto) 0.4, Absolute Neuts (auto) 3.7, Absolute Lymphs (auto) 0.51 L, Nucleated RBC % 0, Differential Comment SEE COMMENT, Platelet Estimate SLT DEC, RBC Morphology N CHROM, Anisocytosis RARE 08/20/19 05:16: Sodium 137, Potassium 3.6, Chloride 103, Carbon Dioxide 28.0, Anion Gap 6, BUN 10, Creatinine 0.60, Estim Creat Clear Calc 60.29, Est GFR (MDRD) Af Amer 125, Est GFR (MDRD) Non-Af 104, BUN/Creatinine Ratio 16.8, Glucose 105, Calcium 8.3 L, Total Bilirubin 0.70, AST 25, ALT 29, Alkaline Phosphatase 77, Total Protein 6.1 L, Albumin 3.1 L, Globulin 3.0, Albumin/Globulin Ratio 1.0 Current Medications Acetaminophen (Tylenol) 650 mg PO Q6H PRN PRN PRN Reason: Non-cardiac pain (4-1010) Hydrocodone Bitart/Acetaminophen ([place] 5mg-325mg) 1 - 2 tablet PO Q4H PRN PRN PRN Reason: Pain Score 4-10/10 Al Hydroxide/Mg Hydroxide (Mylanta Ii) 15 - 30 ml PO Q4H PRN PRN PRN Reason: INDIGESTION Albuterol Sulfate (Ventolin Aerosols) 2.5 mg INHALATION Q2H PRN PRN PRN Reason: dyspnea, wheezing Atorvastatin Calcium (Lipitor) 10 mg PO QHS [facility] Last Admin: 08/19/19 20:53 Dose: Not Given Documented by: Dextrose (D50w Syringe) 0 gm IV X1 PRN; Protocol PRN Reason: Hypoglycemia Glucagon () 1 mg IM .X1 PRN PRN Reason: Hypoglycemia Guaifenesin (Robitussin) 20 ml PO Q4H PRN PRN PRN Reason: COUGH Hydralazine HCl (Apresoline Iv) 10 mg IV Q4H PRN PRN PRN Reason: SBP > 160 Last Admin: 08/20/19 14:55 Dose: 10 mg Documented by: Sodium Chloride () 1,000 mls @ 125 mls/hr IV .Q8H [facility] Last Admin: 08/20/19 17:02 Dose: 125 mls/hr Documented by: Pantoprazole Sodium 40 mg/ (Sodium Chloride) 110 mls @ 330 mls/hr IV Q12 [facility] Last Infusion: 08/20/19 10:30 Dose: Infused Documented by: Sodium Chloride () 250 mls @ 15 mls/hr IV .[id number] PRN PRN Reason: Additional IVPB Infusion Levothyroxine Sodium (Synthroid) 112 mcg PO MOTUWETHFR [facility] Last Admin: 08/20/19 05:33 Dose: Not Given Documented by: Liothyronine Sodium (Cytomel) 25 mcg PO QODAY@0600 [facility] Magnesium Hydroxide (Milk Of Magnesia) 30 ml PO DAILY PRN PRN Reason: Constipation Melatonin (Melatonin) 3 mg PO QHS PRN PRN PRN Reason: INSOMNIA Metoprolol Tartrate (Lopressor (Beta Jesse)) 50 mg PO BID [facility] Last Admin: 08/20/19 10:06 Dose: Not Given Documented by: Morphine Sulfate () 1 - 2 mg IV Q4H PRN PRN PRN Reason: Pain Score 1-10/10 Last Admin: 08/20/19 17:01 Dose: 2 mg Documented by: Nitroglycerin (Nitrostat) 0.4 mg SUBLINGUAL Q5M PRN PRN Reason: CARDIAC/CHEST PAIN Ondansetron HCl (Zofran) 4 mg IV Q8H PRN PRN PRN Reason: NAUSEA/VOMITING Last Admin: 08/20/19 17:04 Dose: 4 mg Documented by: Promethazine HCl (Phenergan) 6.25 mg IV Q4H PRN PRN PRN Reason: NAUSEA/VOMITING Last Admin: 08/19/19 20:47 Dose: 6.25 mg Documented by: Sodium Chloride () 10 - 40 ml IV UD PRN PRN Reason: SALINE FLUSH Last Admin: 08/19/19 20:46 Dose: 10 ml Documented by: Throat Lozenges (Cepacol Sore Throat Lozenge) 1 lozenge MUCOUS MEM Q2H PRN PRN PRN Reason: Sore throat or cough Home Medications: Medications to take at Discharge Metoprolol(XL)Succ [Toprol Xl (Beta Jesse)] 50 mg PO BID 12/21/14 Atorvastatin Calcium 10 mg PO QHS 08/18/19 Hydrochlorothiazide 12.5 mg PO DAILY 08/18/19 Levothyroxine Sodium 112 mcg PO MOTUWETHFR 08/19/19 Liothyronine Sodium [Cytomel] 25 mcg PO QODAY 08/19/19 Omeprazole 40 mg PO DAILY #0 08/21/19 Primary Care Physician: August Connor DO [Primary Care Provider] - Please Follow Up With: August Connor DO Medical Necessity - Tobacco Use Smoking Status: Never smoker Tobacco Use: Non-smoker Meaningful Use Info Meaningful Use Diagnoses (Choose all that apply): None applicable Code Visit Inpatient E&M: 19436 Disch Hosp
[2019-08-22 15:47] LABS: Pathologist Review Reviewed
--- NOTE | 2019-08-23 15:31 | CASEMGMT ---
RN CM Discharge F/U Phone Call LACE: 13 Strata: 4 Discharge date: 08/21/19 Call date: 08/23/19 Call time: [phone] Attempted to reach pt without success at this time, message left for pt to call this RN CM back if/when able. S[place]en RN CM Admission dx: Intractable abd pain, N/V
== END 2019-08-21 12:21 | disposition short-term general hospital (02) | DRG 392 ==
LOC: ED 14:53 → PCU 15:10
PROVIDERS: Surgery; Admitting Provider Family Medicine; Emergency Provider Emergency Medicine; Family Provider Student in an Organized Health Care Education/Training Program; PCP Student in an Organized Health Care Education/Training Program; Referring Provider Family Medicine; Visit Provider Internal Medicine
PROC: 0DJ08ZZ Inspection of Upper Intestinal Tract, Via Natural or Artificial Opening Endoscopic (ICD-10-PCS; CPT 43235; principal; 2019-08-20 11:55)
DX: K57.10 Diverticulosis of small intestine without perforation or abscess without bleeding (principal); C83.10 Mantle cell lymphoma, unspecified site; E87.6 Hypokalemia; I10 Essential (primary) hypertension; E78.5 Hyperlipidemia, unspecified; E03.9 Hypothyroidism, unspecified; K44.9 Diaphragmatic hernia without obstruction or gangrene; D69.6 Thrombocytopenia, unspecified; K21.9 Gastro-esophageal reflux disease without esophagitis; K31.7 Polyp of stomach and duodenum; D64.9 Anemia, unspecified; R10.13 Epigastric pain; R10.11 Right upper quadrant pain; R10.12 Left upper quadrant pain
CPT/HCPCS: 36415; 74177; 74246; 76705; 80048; 80053; 80076; 83615; 83690; 83735; 84100; 84550; 85025; 93005; 96361; 96374; 96375; 97161; 97165; 97802; 99251; 99283; 99285; J7030; Q9967; A4216; G0463; J2405

== ENCOUNTER → 2022-03-25 | Outpatient (CLI) | payer MEDICARE, OTHER, SELFPAY ==
--- NOTE | 2022-03-25 14:30 | MRI_ITS ---
EXAM: MR HEAD WITHOUT AND WITH INTRAVENOUS CONTRAST CLINICAL INDICATION: Mantle cell lymphoma w/ lymph node involvement, RIGHT eye pain -- Compare to MRI brain done 03/03 @[facility]. Retinal hemorrhage TECHNIQUE: Multiplanar and multisequence MR images of the brain were obtained without and with intravenous contrast. This report was created using [employer] report generation technology. CONTRAST: IV 17ml Dotarem COMPARISON: MR Head dated 03/03/2022 FINDINGS: BRAIN AND EXTRA-AXIAL SPACES: Increased T2 signal intensity within the cerebral white matter suggestive of chronic microvascular change. No abnormal contrast enhancement. Prominence of the cortical sulci and ventricles consistent with volume loss change. No intra- or extra-axial hemorrhage. No intracranial mass or mass effect. Posterior fossa structures are unremarkable. Basal cisterns are patent. Diffusion-weighted imaging demonstrates no evidence of acute or subacute infarct. SELLA: Small empty sella. Normal optic chiasm. Suprasellar cistern. AUDITORY SYSTEM: Normal. The internal auditory canals are patent. BONES/JOINTS: Intact calvarium. SINUSES: Unremarkable as visualized. Clear. MASTOID AIR CELLS: Unremarkable as visualized. Clear. ORBITS: Posterior defect of the right globe again noted consistent with 10 mm thick retinal hemorrhage not significantly changed in size from prior study. Left globe has a normal appearance. VASCULATURE: Unremarkable as visualized. Normal flow voids in the major intracranial circulation. MRI/Orbit Face Neck W/WO Contrast IMPRESSION: 1. Right retinal hemorrhage not significantly changed in size from prior exam. 2. Chronic microvascular changes of the brain. Electronically Signed: Samuel Young MD at 16:59 EDT ,
[2022-03-25 15:10] LABS: CREATININE FINGERSTICK < 0.9 mg/dL (0.55-1.02); EGFR FINGERSTICK > 60.0000 mL/min (>60)
== END | disposition home or self-care (01) ==
LOC: MRI 14:01
PROVIDERS: PCP Student in an Organized Health Care Education/Training Program; Referring Provider Internal Medicine Hematology & Oncology; Visit Provider Internal Medicine Hematology & Oncology
DX: C83.18 Mantle cell lymphoma, lymph nodes of multiple sites (principal); H35.61 Retinal hemorrhage, right eye
CPT/HCPCS: 70543; A9575

== ENCOUNTER 2022-06-06 16:45 | Emergency (ER) | payer MEDICARE, OTHER, SELFPAY ==
[2022-06-06 16:49] VITALS: BP 200/104; PULSE 85; RESP 18; TEMP 37.1; O2SAT 95; BMI 35.7
--- NOTE | 2022-06-06 17:21 | EX.ED.DYSGE1 ---
HPI History of Present Illness Chief Complaint: General Illness Informant: patient Onset/Context/Timing Onset: Days (2) Context: Gradual Onset Timing: Continuous Quality: sore Location: throat Current Severity: Moderate Maximum Severity: Moderate Worsened by: swallowing Relieved by: hasn't tried anything Associated Symptoms Associated Symptoms: fevers, cough, achy Narrative Narrative: Patient feeling ill for the last 2 days, 2 home positive COVID tests. Call the office to look into the antivirals, but the PCP was not and so she was referred to the emergency department. She denies any dyspnea. No GI symptoms. She is vaccinated, her last booster was in November. She has a history of mantle cell lymphoma that is in remission. [facility] Medical History Anemia Hyperlipidemia Hypertension Hypothyroidism Lymphadenopathy Macular degeneration Mantle cell lymphoma Rheumatoid arthritis Rosacea Sleep apnea Splenomegaly Thrombocytopenia Home Medications metoprolol succinate 50 mg tablet,extended release 24 hr 50 mg PO BID blood pressure 12/21/14 [History Last Taken 08/19/19] atorvastatin 10 mg tablet 10 mg PO QHS cholesterol 08/18/19 [History Last Taken 08/18/19] hydrochlorothiazide 12.5 mg capsule 12.5 mg PO DAILY diuretic 08/18/19 [History Last Taken 08/17/19] levothyroxine 112 mcg tablet 112 mcg PO MOTUWETHFR thyroid 08/19/19 [History Last Taken 08/16/19] liothyronine 25 mcg tablet 25 mcg PO QODAY thyroid 08/19/19 [History Last Taken 08/17/19] omeprazole 20 mg capsule,delayed release 40 mg PO DAILY ##0 08/21/19 [Rx Last Taken 08/19/19] nirmatrelvir 300 mg (150 mg x2)-ritonavir 100 mg tablet,dose pack(EUA) (Paxlovid) See Rx Instructions PO .COMPLEX #30 tabs 06/06/22 [Rx Last Taken Unknown] Allergy/AdvReac Type Severity Reaction Status Date / Time adhesive tape AdvReac skin Verified 06/06/22 16:48 irritation banana AdvReac Upset Verified 06/06/22 16:48 Stomach Opioids - Morphine Analogues AdvReac Vomiting Verified 06/06/22 16:48 [narcotics] Family History Sister Pancreatic cancer Mother Leukemia Father Non Hodgkin's lymphoma Surgical History (Updated 06/14/18 @ 12:[address] Jamie Vega MD) History of breast biopsy History of hysterectomy Social History Smoking Status: Never smoker ROS ROS ED Constitutional Constitutional ED: Reports body ache(s), chills, fever(s) and malaise Eyes Eyes: Denies change in vision or diplopia ENT ENT ED: Reports sore throat; Denies rhinorrhea Cardiovascular Cardiovascular: Denies chest pain or palpitations Respiratory/Chest Respiratory/Chest: Reports cough; Denies dyspnea Gastrointestinal Gastrointestinal: Denies abdominal pain, diarrhea, nausea or vomiting Genitourinary Genitourinary ED: Denies dysuria or hematuria Musculoskeletal Musculoskeletal: Denies back pain or neck pain Integumentary Denies abscess or rash Neurologic Neurologic: Denies headache(s), paresthesias or weakness Psychiatric Psychiatric: Denies anxiety or suicidal thoughts EXAM Physical Exam Const Vital Signs: 06/06/22 16:49 Temperature 98.7 F Temperature Source Temporal Pulse Rate 85 Respiratory Rate 18 Blood Pressure 200/104 H Blood Pressure Mean 136 Pulse Ox 95 Oxygen Delivery Method Room Air Positive well nourished, well developed and obese General Appearance ED: well developed and NAD Nutritional Appearance: obese HEENT Reports moist mucous membranes HEENT Narrative: No posterior oropharyngeal asymmetry or exudates normocephalic and atraumatic Eyes PERRL and EOMs intact bilaterally Neck full ROM, no lymphadenopathy and supple Resp normal respiratory effort Effort and Inspection: able to speak in complete sentences GI non-tender and non-distended Auscultation: normoactive bowel sounds Palpation: soft Back/Spine no CVA tenderness General Back: other FROM Extremity normal to inspection Neuro oriented x3, CN's II-XII intact bilaterally and no sensory deficits noted Sensorium / Orientation: awake and alert Motor Exam: strength 5/5 throughout Psych mental status grossly normal Skin no rashes or lesions noted and no wounds MDM MDM MDM Narrative Medical decision making narrative: Patient meets criteria for prescribing Paxlovid. Reviewed her medication list, she will need to hold the atorvastatin, but she can continue the others. Given appropriate discharge instructions and reasons to return. Discharge Plan Triage Chief Complaint: General Illness ED Provider: Malick Diallo Dx/Rx/DC Orders Clinical Impression: COVID-19 Instructions: Coronavirus Disease 2019 (COVID-19): Caring for Yourself or Others Prescriptions: New Paxlovid (EUA) 300 mg (150 mg x 2)-100 mg tablets,dose pack See Rx Instructions .ROUTE .COMPLEX Qty: 30 0RF Rx Instructions: take TWO 150 mg tablets of nirmatrelvir with ONE 100 mg tablet of ritonavir twice daily for 5 days Continued metoprolol succinate 50 MG tablet 50 mg PO BID Label Comments: Blood pressure hydrochlorothiazide 12.5 MG capsule 12.5 mg PO DAILY liothyronine 25 MCG tablet 25 mcg PO QODAY levothyroxine 112 MCG tablet 112 mcg PO MOTUWETHFR omeprazole 20 MG capsule,delayed release(DR/EC) 40 mg PO DAILY Qty: 0 0RF Held atorvastatin 10 MG tablet 10 mg PO QHS Hold Instructions: Resume on 06/15/22. Primary Care Provider: August Connor Referrals: August Connor DO [Primary Care Provider] - As Needed Activity Restrictions/Additional Instructions: Try to get a home portable pulse oximeter and closely watch your oxygen levels periodically. If you stay below 90% for more than a minute or so, and/or you are feeling like your breathing is getting worse, return to the emergency department for further evaluation. Currently, CDC recommendations state that you should stay home through day 5 of symptoms, then as long as symptoms are improving, if you need to go to work or somewhere else you may for days 6-10 as long as you are wearing a mask the entire time. If you are feeling better after day 10 you may resume life is normal. Disposition Disposition: Home, Self Care
[2022-06-06 17:40] VITALS: BP 180/99; PULSE 88; RESP 16; O2SAT 99
== END 2022-06-06 17:42 | disposition home or self-care (01) ==
PROVIDERS: Emergency Provider Emergency Medicine; PCP Student in an Organized Health Care Education/Training Program; Visit Provider Emergency Medicine
DX: U07.1 COVID-19 (principal); I10 Essential (primary) hypertension; E78.5 Hyperlipidemia, unspecified; E03.9 Hypothyroidism, unspecified; E66.9 Obesity, unspecified; Z68.35 Body mass index [BMI] 35.0-35.9, adult; Z79.899 Other long term (current) drug therapy
CPT/HCPCS: 99282

== ENCOUNTER 2023-12-24 08:54 | Observation (INO) | payer MEDICARE, OTHER, SELFPAY ==
[2023-12-24] VITALS (9 sets, daily range): BP systolic 113–165; BP diastolic 53–77; PULSE 63–95; RESP 15–20; TEMP 36.2–36.8; O2SAT 94–99; BMI 36.8; BMI 38.0
--- NOTE | 2023-12-24 09:19 | EKG12_ITS ---
Test Reason : DIZZINESS Blood Pressure : / mmHG Vent. Rate : 063 BPM Atrial Rate : 063 BPM P-R Int : 180 ms QRS Dur : 090 ms QT Int : 412 ms P-R-T Axes : 028 000 023 degrees QTc Int : 421 ms Normal sinus rhythm Normal ECG Confirmed by LUCRECIA AGUSTIN, ERNESTINE ([id number]), web content editor MARY CARMEN BOGGS ([id number]) on 12/25/2023 7:00:01 AM Referred By: Confirmed By:ERNESTINE SINGER MD
[2023-12-24 09:41] LABS: Absolute Lymphocyte Count 0.73 X10^3/uL (0.83-4.51); Absolute Neutrophil Count 1.8 X10^3/uL (2.0-7.7); Basophil# 0.02 X10^3/uL; Basophil% 0.6 % (0-1); Eosinophil# 0.13 X10^3/uL; Hematocrit 36.6 % (37-47); Hemoglobin 11.8 g/dL (12.0-15.0); Lymphocyte # 0.73 X10^3/ul (0.83-4.51); Lymphocyte % 22.3 % (19-41); Mean Corp Hgb Conc 32.2 g/dL (32-36); Mean Corpuscular Hgb 31.6 pg (27.0-32.0); Mean Corpuscular Volume 98.1 fL (81-99); Mean Platelet Vol. 12.1 fl (6.2-12.0); Monocyte# 0.57 X10^3/uL; Monocyte% 17.4 % (0-10); NRBC Flagged by Analyzer 0 % (0-5); Neutrophil # 1.82 X10^3/uL (2.7-7.7); Neutrophil % 55.7 % (47-70); Platelet Count 113 K/mm3 (150-450); RBC Distribution Width CV 13.8 % (11.6-14.6); RBC Distribution Width SD 50.3 fl (35.1-43.9); Red Blood Count 3.73 M/mm3 (4.2-5.4); White Blood Count 3.3 K/mm3 (4.4-11.0)
[2023-12-24 09:55] LABS: Anion Gap 6 (5-15); BUN 31 mg/dL (7-18); BUN/Creat Ratio 34.9 RATIO (10-20); Calcium,Total 9.4 mg/dL (8.5-10.1); Chloride 109 mmol/L (98-107); Creatinine, Serum 0.89 mg/dL (0.55-1.02); EST Glomerular Filtration Rate 64 mL/min (>60); Est Glom Filt Rate - Afr Amer 78 mL/min (>60); Estimated Creatinine Clearance 45.71 ml/min; Glucose 104 mg/dL (74-106); Potassium 3.9 mmol/L (3.5-5.1); Sodium Level 143 mmol/L (136-145)
--- NOTE | 2023-12-24 09:58 | EX.ED.DYSGE1 ---
HPI History of Present Illness Chief Complaint: Dizziness Narrative Narrative: 83-year-old female presenting with dizziness. Patient states she has a history of vertigo in the past and it feels a little bit more severe. Patient has nausea. She states he woke up this morning at 3 AM felt like she was getting set up to try to walk to the bathroom and vomited on the floor twice. She denies chest pain, palpitations, shortness of breath. Denies fevers or chills. PFSH PFSH Medical History Anemia Hyperlipidemia Hypertension Hypothyroidism Lymphadenopathy Macular degeneration Mantle cell lymphoma Rheumatoid arthritis Rosacea Sleep apnea Splenomegaly Thrombocytopenia Home Medications metoprolol succinate 50 mg tablet,extended release 24 hr 50 mg PO BID blood pressure 12/21/14 [History Last Taken 08/19/19] atorvastatin 10 mg tablet 10 mg PO QHS cholesterol 08/18/19 [History Last Taken 08/18/19] hydrochlorothiazide 12.5 mg capsule 12.5 mg PO DAILY diuretic 08/18/19 [History Last Taken 08/17/19] levothyroxine 112 mcg tablet 112 mcg PO MOTUWETHFR thyroid 08/19/19 [History Last Taken 08/16/19] liothyronine 25 mcg tablet 25 mcg PO QODAY thyroid 08/19/19 [History Last Taken 08/17/19] omeprazole 20 mg capsule,delayed release 40 mg (2 x 20 mg) PO DAILY ##0 08/21/19 [Rx Last Taken 08/19/19] nirmatrelvir 300 mg (150 mg x2)-ritonavir 100 mg tablet,dose pack (Paxlovid) See Rx Instructions PO .COMPLEX #30 tabs 06/06/22 [Rx Last Taken Unknown] Allergy/AdvReac Type Severity Reaction Status Date / Time adhesive tape AdvReac skin Verified 12/24/23 08:54 irritation banana AdvReac Upset Verified 12/24/23 08:54 Stomach Opioids - Morphine Analogues AdvReac Vomiting Verified 12/24/23 08:54 [narcotics] Family History Sister Pancreatic cancer Mother Leukemia Father Non Hodgkin's lymphoma Surgical History History of breast biopsy History of hysterectomy Social History Smoking Status: Never smoker ROS ROS ED ROS Narrative Vertiginous dizziness Constitutional Constitutional ED: Denies chills, fever(s) or sweats Eyes Eyes: Denies blurry vision or change in vision ENT ENT ED: Denies ear pain or sore throat Cardiovascular Cardiovascular: Denies chest pain, palpitations or racing heartbeat Respiratory/Chest Respiratory/Chest: Denies cough, dyspnea or sputum Gastrointestinal Gastrointestinal: Reports nausea and vomiting; Denies abdominal pain, constipation or diarrhea Genitourinary Genitourinary ED: Denies dysuria, hematuria or urinary frequency Musculoskeletal Musculoskeletal: Denies arthralgias, myalgias or neck pain Integumentary Denies abscess, Abrasions or rash Neurologic Neurologic: Denies headache(s), paresthesias or weakness Psychiatric Psychiatric: Denies anxiety, depression, suicidal ideation or suicidal thoughts Endocrine Endocrinology: Denies polydipsia or polyuria EXAM Physical Exam Const Vital Signs: 12/24/23 08:55 12/24/23 09:33 Temperature 97.5 F L Temperature Source Temporal Pulse Rate 63 Respiratory Rate 16 Respiratory Effort Normal Non-Labored Respiratory Pattern Normal Blood Pressure 165/77 H Blood Pressure Mean 106 Pulse Ox 99 Oxygen Delivery Method Room Air Positive well nourished General Appearance ED: NAD; Negative for pallor HEENT Reports TM's clear HEENT Narrative: Raphael-Hallpike positive. Nystagmus noted. Tympanic Membrane ED: Yes TM's clear Eyes PERRL and EOMs intact bilaterally Resp normal respiratory effort and clear to auscultation bilaterally Cardio regular rate and regular rhythm Neuro oriented x3 and CN's II-XII intact bilaterally Sensorium / Orientation: alert Motor Exam: strength 5/5 throughout Psych mental status grossly normal Skin no rashes or lesions noted General Skin Exam: Negative for jaundice or pallor MDM MDM MDM Narrative Medical decision making narrative: Patient with dizziness. She has a history of vertigo and she has reproducible vertigo on [place]-Hallpike. Patient given meclizine and Phenergan. Will obtain basic lab work CBC, BMP. CBC shows a blood cell 3.3. This is her baseline. Hemoglobin 11.8. Platelets are 113 and the patient has history of thrombocytopenia. Patient was given a liter normal saline. She was given meclizine and Phenergan. On reevaluation at 11:18 PM she feels much better and she was able to get up and ambulate to the bathroom. Given she is feeling better I will send her home prescription closing and she can follow-up with her primary care. Impression: 1. Vertigo Lab Data Attestation: I reviewed the patient's lab results. Labs: Laboratory Results - last 24 hr 12/24/23 09:35 WBC 3.3 L RBC 3.73 L Hgb 11.8 L Hct 36.6 L MCV 98.1 MCH 31.6 MCHC 32.2 RDW Std Deviation 50.3 H RDW Coeff of Clair 13.8 Plt Count 113 L MPV 12.1 H Immature Gran % (Auto) 0.000 Neut % (Auto) 55.7 Lymph % (Auto) 22.3 [place] % (Auto) 17.4 H Eos % (Auto) 4.0 Baso % (Auto) 0.6 Absolute Neuts (auto) 1.8 L Absolute Lymphs (auto) 0.73 L Nucleated RBC % 0 Sodium 143 Potassium 3.9 Chloride 109 H Carbon Dioxide 28.0 Anion Gap 6 BUN 31 H Creatinine 0.89 Estim Creat Clear Calc 45.71 Est GFR (MDRD) Af Amer 78 Est GFR (MDRD) Non-Af 64 BUN/Creatinine Ratio 34.9 H Glucose 104 Calcium 9.4 Discharge Plan Triage Chief Complaint: Dizziness ED Provider: David Dawosn Dx/Rx/DC Orders Prescriptions: No Action metoprolol succinate 50 MG tablet 50 mg PO BID Patient Comments: Blood pressure atorvastatin 10 MG tablet 10 mg PO QHS Hold Instructions: Resume on 06/15/22. hydrochlorothiazide 12.5 MG capsule 12.5 mg PO DAILY liothyronine 25 MCG tablet 25 mcg PO QODAY levothyroxine 112 MCG tablet 112 mcg PO MOTUWETHFR omeprazole 20 MG capsule,delayed release(DR/EC) 40 mg PO DAILY Qty: 0 0RF Paxlovid 300 mg (150 mg x 2)-100 mg tablets,dose pack See Rx Instructions .ROUTE .COMPLEX Qty: 30 0RF Rx Instructions: take TWO 150 mg tablets of nirmatrelvir with ONE 100 mg tablet of ritonavir twice daily for 5 days Primary Care Provider: August Connor Referrals: August Connor, DO [Primary Care Provider] -
[2023-12-24] MEDS: Meclizine HCl 25 MG Tablet PO (10:00)
[2023-12-24] MEDS: proMETHazine 25 MG/ML Syringe 12.5 MG IM (10:01)
[2023-12-24] MEDS: 0.9% Normal Saline (1000mL) 1,000 ML 999 ML IV ×2 (10:07→12:22)
[2023-12-24] MEDS: Ondansetron 4 MG/2 ML Vial IV (12:22)
--- NOTE | 2023-12-24 13:01 | RAD_ITS ---
INDICATION: dizziness EXAMINATION/TECHNIQUE: X-RAY - XR Chest 1 View COMPARISON: May 28, 2019 FINDINGS: LINES/DEVICES: None. LUNGS: There is a 1.7 cm nodular opacity projecting over the right lower lung. There is a calcified appearing right basilar nodule visualized as well which may reflect a granuloma. No pneumothorax. MEDIASTINUM AND CARDIOVASCULAR STRUCTURES: Cardiac silhouette not enlarged. Central airways and mediastinal contour are unremarkable. BONES AND SOFT TISSUES: Unremarkable. RAD/Chest 1 View (Portable) IMPRESSION: Indeterminate 1.7 cm nodular opacity within the right lower lung which may be secondary to a confluence of shadows however cannot exclude a nodule, recommend PA and lateral images or chest CT for further characterization. Electronically Signed: Celia Mederos MD at 14:03 EDT ,
--- NOTE | 2023-12-24 13:01 | CT_ITS ---
INDICATION: dizziness EXAMINATION: CT BRAIN - CT Head or Brain W/O Contrast Injection TECHNIQUE: Multiple axial images were obtained of the head without intravenous contrast. A radiation dose optimization technique was used for this scan. IV Contrast dosage and agent: None. RADIATION DOSAGE (If Supplied By Facility): CTDIvol = ( 44.99 ) mGy, DLP = ( 728.62 ) mGycm COMPARISON: MRI dated March 25, 2022 FINDINGS: BRAIN PARENCHYMA: No intra- or extra-axial hemorrhage. There are patchy foci of low attenuation within the white matter of the cerebral hemispheres, a nonspecific finding most commonly reflecting small vessel ischemia. There is stable extra-axial fullness overlying the anterior right temporal lobe possibly secondary to underlying atrophy. No evidence of acute infarct. No intracranial mass or mass effect. There is preservation of the bobo/white matter interface. Posterior fossa structures are unremarkable. CSF SPACES: Appropriate for age. No hydrocephalus. Basal cisterns are patent. CALVARIUM, SKULL BASE, PARANASAL SINUSES AND MASTOID AIR CELLS: There is mild opacification of the left mastoid air cells. No discrete lytic or blastic abnormalities. ORBITS: Both globes, extraocular muscles, optic nerves and retrobulbar fat appear unremarkable. ASPECTS Score for Acute Strokes: 10 CT/Brain/Head without Contrast IMPRESSION: Mild opacification of the left mastoid air cells with a history of mastoiditis. Small vessel ischemia. Electronically Signed: Celia Mederos MD at 14:24 EDT ,
[2023-12-24 13:17] LABS: Bacteria 0 SEEN /hpf (None Seen); Mucous, Urine 0 SEEN /hpf (<or=2+); White Blood Cells 0 SEEN /hpf (0-5)
[2023-12-24 13:38] LABS: Color, Urine Yellow (Yellow); Glucose, Dipstick Normal (Normal); Ketone-Dipstick Negative (Negative); Leukocyte Esterase-Dipstick Negative /ul (Negative); Nitrite-Dipstick Negative (Negative); Occult Blood-Urine 150 /ul (Negative); Protein-Dipstick Negative (Negative); Urine Bilirubin Dipstick Negative (Negative); Urine Clarity Clear (Clear); Urine Urobilinogen Normal (Normal)
[2023-12-24 13:46] LABS: Red Blood Cells-Urine 0-5 SEEN /hpf (0-5); Squamous Epithelial Cells - UA 0-5 SEEN /hpf (5-10)
[2023-12-24 13:48] LABS: Troponin-I HS 7 pg/mL (3.0-54.0)
--- NOTE | 2023-12-24 16:08 | PCM.HP.STD ---
HPI - General General Date of Admission: 12/24/23 Date of Service: 12/24/23 Chief Complaint: Dizziness and vertigo started at 3 AM today HPI Narrative LASHON MUNIZ, is a 83 F came to ED for dizziness and vertigo that started at 3 AM today. Patient denies any acute change yesterday as she went to bed fine. In the morning she felt like vertigo with the room spinning dizziness, dry heaving and nausea but did not vomit. She also did not eat or drink much since morning. Patient is stated that she had left middle ear fluid/otitis media in October 2023 and had tube inserted by Dr. eGorge. After that she had infection that did not resolve with the antibiotic eardrop for about 1 month therefore she was started on oral antibiotic and change in eardrop with steroid about a week ago. Her last dose of oral antibiotic is supposed to be completed tomorrow. Denies any fever or chills, abdominal pain. No focal or lateralizing strokelike symptoms. She denies loss and balance, dysarthria, language deficit. Normally she does not use walker. She also has chronic right eye macular degeneration and she does not have light perception even. History of mantle cell lymphoma and in remission for 6 years.She takes 1 pill chemotherapy every day for that In ED, vitals acceptable limit. Labs EKG and imaging reviewed. Patient is further admitted. [facility] Medical History Anemia Hyperlipidemia Hypertension Hypothyroidism Lymphadenopathy Macular degeneration Mantle cell lymphoma Rheumatoid arthritis Rosacea Sleep apnea Splenomegaly Thrombocytopenia Home Medications atorvastatin 10 mg tablet 10 mg PO QHS cholesterol 08/18/19 [History Last Taken 12/23/23] liothyronine 25 mcg tablet 25 mcg PO QODAY thyroid 08/19/19 [History Last Taken 12/23/23] acalabrutinib maleate 100 mg tablet (Calquence (acalabrutinib maleate)) 100 mg PO Q12H 12/24/23 [History Last Taken 12/23/23] amlodipine 2.5 mg tablet 2.5 mg PO DAILY 12/24/23 [History Last Taken 12/23/23] ascorbic acid (vitamin C) 100 mg chewable tablet 100 mg PO DAILY 12/24/23 [History Last Taken 12/23/23] carvedilol 25 mg tablet 25 mg PO BID 12/24/23 [History Last Taken 12/23/23] cefdinir 300 mg capsule 300 mg PO BID 12/24/23 [History Last Taken 12/23/23] cholecalciferol (vitamin D3) 25 mcg (1,000 unit) chewable tablet 25 mcg PO DAILY 12/24/23 [History Last Taken 12/23/23] ciprofloxacin 0.3 %-dexamethasone 0.1 % ear drops,suspension 5 drp otic (ear) BID 12/24/23 [History Last Taken 12/23/23] levothyroxine 125 mcg tablet 125 mcg PO WETH 12/24/23 [History Last Taken 12/21/23] levothyroxine 50 mcg tablet 50 mcg PO SUMOTUFRSA 12/24/23 [History Last Taken 12/23/23] magnesium citrate 100 mg capsule 100 mg PO DAILY 12/24/23 [History Last Taken 12/23/23] meclizine 25 mg tablet 25 mg PO 4X/DAY PRN PRN Dizziness #20 tabs 12/24/23 [Rx Last Taken Unknown] Allergy/AdvReac Type Severity Reaction Status Date / Time adhesive tape AdvReac skin Verified 12/24/23 08:54 irritation banana AdvReac Upset Verified 12/24/23 08:54 Stomach Opioids - Morphine Analogues AdvReac Vomiting Verified 12/24/23 08:54 [narcotics] Family History Sister Pancreatic cancer Mother Leukemia Father Non Hodgkin's lymphoma Surgical History History of breast biopsy History of hysterectomy Social History Smoking Status: Never smoker ROS ROS Narrative Constitutional: Reports fatigue and weakness. No fever. HEENT: As described in HPI with left middle ear tube. Reports systems reviewed and no addt'l complaints, except as documented Respiratory/Chest: No acute shortness of breath or respiratory distress or wheezing. CVS: No chest pain pressure or tightness. Gastrointestinal: Denies coffee ground emesis, hematemesis or vomiting Genitourinary: Denies burning urination or new urinary tract symptoms Musculoskeletal: Denies acute joint pain or limited range of motion. No acute injury Neurologic: Denies seizure-like symptoms. Vertigo. skin: No ulcer. No rash Endocrinology: Reports systems reviewed and no addt'l complaints, except as documented Hematologic/Lymphatic: Reports systems reviewed and no addt'l complaints, except as documented Rest 14 ROS are negative except as mentioned in HPI Vital Signs Vital Signs Vital Signs: 12/24/23 08:55 12/24/23 09:33 12/24/23 10:54 Temperature 97.5 F L Temperature Source Temporal Pulse Rate 63 Respiratory Rate 16 Respiratory Effort Normal Non-Labored Respiratory Pattern Normal Blood Pressure 165/77 H 145/64 H Blood Pressure Mean 106 91 Pulse Ox 99 Oxygen Delivery Method Room Air 12/24/23 12:23 12/24/23 14:00 Temperature 98.2 F Temperature Source Temporal Pulse Rate 71 67 Respiratory Rate 16 15 Respiratory Effort Respiratory Pattern Blood Pressure 157/61 H 156/66 H Blood Pressure Mean 93 96 Pulse Ox 95 97 Oxygen Delivery Method Room Air Weight Weight: 182 lb 12.211 oz Body Mass Index (BMI) 36.8 Physical Exam Narrative General: Alert, Oriented x3, Cooperative HEENT: Atraumatic, PERRLA, EOMI, Normocephalic. ED physician checked her ears and does not have significant wax. Nystagmus present. Raphael-Hallpike maneuver positive Oral: No Gingival or Mucosal Lesions/ Ulcerations Neck: Supple, No JVD, Negative Carotid Bruits Chest wall/Lungs: Air entry diminished in bilateral lung bases. No crepitation/rhonchi Cardiovascular: Regular rate, Regular Rhythm, Normal S1, Normal S2, No M/G/R Abdomen: Bowel Sounds Present, Soft, Non Tender, Non-Distended : No dysuria. No renal angle tenderness. No suprapubic tenderness. Extremities: No edema, Capillary Refill Less than 3 Seconds Skin: No rashes, No breakdown Musculoskeletal: No Tenderness to Palpation of Joints or Extremities Neurological: Cranial nerves II-XII grossly intact, DTR 2+/4. No acute focal neurological deficit. Psych/Mental Status: Flat affect. Results Lab / Micro Data 12/24/23 09:35 12/24/23 09:35 Labs: Laboratory Results - last 24 hr 12/24/23 09:35: WBC 3.3 L, RBC 3.73 L, Hgb 11.8 L, Hct 36.6 L, MCV 98.1, MCH 31.6, MCHC 32.2, RDW Std Deviation 50.3 H, RDW Coeff of Clair 13.8, Plt Count 113 L, MPV 12.1 H, Immature Gran % (Auto) 0.000, Neut % (Auto) 55.7, Lymph % (Auto) 22.3, [place] % (Auto) 17.4 H, Eos % (Auto) 4.0, Baso % (Auto) 0.6, Absolute Neuts (auto) 1.8 L, Absolute Lymphs (auto) 0.73 L, Nucleated RBC % 0, Sodium 143, Potassium 3.9, Chloride 109 H, Carbon Dioxide 28.0, Anion Gap 6, BUN 31 H, Creatinine 0.89, Estim Creat Clear Calc 45.71, Est GFR (MDRD) Af Amer 78, Est GFR (MDRD) Non-Af 64, BUN/Creatinine Ratio 34.9 H, Glucose 104, Calcium 9.4, Troponin I High Sens 7 12/24/23 13:13: Urine Color Yellow, Urine Clarity Clear, Urine pH 6.0, Ur Specific [place] 1.010, Urine Protein Negative, Urine Glucose (UA) Normal, Urine Ketones Negative, Urine Occult Blood 150 H, Urine Nitrite Negative, Urine Bilirubin Negative, Urine Urobilinogen Normal, Ur Leukocyte Esterase Negative, Urine RBC 0-5 SEEN, Urine WBC 0 SEEN, Ur Squamous Epith Cells 0-5 SEEN, Urine Bacteria 0 SEEN, Urine Mucus 0 SEEN Imaging Radiology Impression Brain CT 12/24/23 13:01 IMPRESSION: Mild opacification of the left mastoid air cells with a history of mastoiditis. Small vessel ischemia. Electronically Signed: Celia Mederos MD at 14:24 EDT Reading Location ID and State: [facility] / [place] Tel , Service support , Chest X-Ray 12/24/23 13:01 IMPRESSION: Indeterminate 1.7 cm nodular opacity within the right lower lung which may be secondary to a confluence of shadows however cannot exclude a nodule, recommend PA and lateral images or chest CT for further characterization. Electronically Signed: Celia Mederos MD at 14:03 EDT Reading Location ID and State: [facility] / [place] Tel , Service support , Assessment & Plan Assessment/Plan (1) Near syncope: PLAN: Plan This is a 83-year-old female being admitted for dizziness and vertigo, since morning 1. Dizziness and vertigo, and lightheadedness, likely peripheral vertigo and near syncope may have related to the left ear respiratory infection: Patient is being admitted in PCU. As per ED physician, she was ambulated prior to discharge but she felt lightheaded which was nonvertiginous in nature hold if heart rate less than 60/min and if persistently low between 60-70/m, can decrease the dose to 25 mg twice daily in consultation his PCP she was admitted. Twelve-lead EKG was done which is normal sinus rhythm 63 bpm, QTc [address]-T changes. CT head was done which shows mild opacification of left mastoid air cells with history of mastoiditis. Chest x-ray shows indeterminate 1.7 cm nodular opacity in right lower lung may be secondary to confluence of shadows however cannot exclude a nodule therefore chest x-ray PA and lateral or CT advised for further characterization. MRI brain without contrast ordered to rule out posterior stroke. Orthostatic blood pressure tomorrow AM 2. 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 Patient used to follow oncologist Dr. Roberts. No acute issues. Continue home chemotherapy pill 3. Chronic normocytic normochromic anemia and mild thrombocytopenia leukopenia, pancytopenia: H&H 11.8/36%. Platelet count 113,000. WBC count low. Pancytopenia related to chemotherapy will History of anemia: Currently H&H is stable. 4. Hypertension: Continue home regimen including metoprolol, Blood pressure in acceptable limit. 5. Hyperlipidemia: Continue home statin regimen. 6. Hypothyroidism: Continue home synthroid regimen. TSH tomorrow AM. 7. DVT Prophylaxis: SCDs, given acute presentation #1 with suspected gastritis/ulcer will defer chemoprophylaxis. 8 CODE status: Full code. Living will/advanced directive/end of life care: Patient does have living will or advanced directive. Her designated power of trial attorney for health is patient's . After discussion of benefits/risks procedures involved with full code, DNR CC arrest and DNR CC, the patient opted for full code. Patient does want artificial life support including intubation, tube feed, ventilator and/chest compression, central venous catheter, vasopressor and DC shock if needed Total time spent in [id number] encounter in discussion of advanced directive 17 minutes. Laboratory Results 12/24/23 09:35: WBC 3.3 L, RBC 3.73 L, Hgb 11.8 L, Hct 36.6 L, MCV 98.1, MCH 31.6, MCHC 32.2, RDW Std Deviation 50.3 H, RDW Coeff of Clair 13.8, Plt Count 113 L, MPV 12.1 H, Immature Gran % (Auto) 0.000, Neut % (Auto) 55.7, Lymph % (Auto) 22.3, Dale % (Auto) 17.4 H, Eos % (Auto) 4.0, Baso % (Auto) 0.6, Absolute Neuts (auto) 1.8 L, Absolute Lymphs (auto) 0.73 L, Nucleated RBC % 0, Sodium 143, Potassium 3.9, Chloride 109 H, Carbon Dioxide 28.0, Anion Gap 6, BUN 31 H, Creatinine 0.89, Estim Creat Clear Calc 45.71, Est GFR (MDRD) Af Amer 78, Est GFR (MDRD) Non-Af 64, BUN/Creatinine Ratio 34.9 H, Glucose 104, Calcium 9.4, Troponin I High Sens 7 12/24/23 13:13: Urine Color Yellow, Urine Clarity Clear, Urine pH 6.0, Ur Specific [place] 1.010, Urine Protein Negative, Urine Glucose (UA) Normal, Urine Ketones Negative, Urine Occult Blood 150 H, Urine Nitrite Negative, Urine Bilirubin Negative, Urine Urobilinogen Normal, Ur Leukocyte Esterase Negative, Urine RBC 0-5 SEEN, Urine WBC 0 SEEN, Ur Squamous Epith Cells 0-5 SEEN, Urine Bacteria 0 SEEN, Urine Mucus 0 SEEN Clinical Impression(s) from Imaging Studies Brain CT 12/24/23 13:01 IMPRESSION: Mild opacification of the left mastoid air cells with a history of mastoiditis. Small vessel ischemia. Electronically Signed: Celia Mederos MD at 14:24 EDT , Chest X-Ray 12/24/23 13:01 IMPRESSION: Indeterminate 1.7 cm nodular opacity within the right lower lung which may be secondary to a confluence of shadows however cannot exclude a nodule, recommend PA and lateral images or chest CT for further characterization. Electronically Signed: Celia Mederos MD at 14:03 EDT , Charges/Coding Visit Charges Inpatient E&M: 94991 Init Hosp L3 Procedures Hospitalists Procedures: 39530 Advncd Care Plan 30 Min
[2023-12-24 16:34] LABS: Magnesium 2.2 mg/dL (1.6-2.6)
[2023-12-24] MEDS: KCL 20MEQ in 0.9% NS 20 MEQ/1,000 ML IV.SOLN. 75 MEQ IV (20:41)
[2023-12-24] MEDS: Cholecalciferol (VIT D3) 25 MCG TABLET (1,000 UNITS) PO (20:42)
[2023-12-24] MEDS: ACALABRUTINIB 100 MG PO (21:00)
[2023-12-24] MEDS: Atorvastatin Calcium 10 MG Tablet PO (21:01)
[2023-12-24] MEDS: Cefdinir 300 MG Capsule PO (21:01)
[2023-12-24] MEDS: CIPROFLOXACIN HCL/DEXAMETH 7.5 ML DROPS.SUSP 5 ML OTIC (21:01)
[2023-12-24] MEDS: Carvedilol 25 MG Tablet PO (21:01)
[2023-12-25 05:14] VITALS: BP 154/64; PULSE 70; RESP 16; TEMP 36.7; O2SAT 95
[2023-12-25] MEDS: Levothyroxine 50 MCG Tablet PO (05:16)
[2023-12-25 05:17] VITALS: BP 154/61; BP 170/76; BP 171/74; PULSE 70; PULSE 72; PULSE 81
--- NOTE | 2023-12-25 05:55 | MRI_ITS ---
STUDY: MRI BRAIN WITHOUT CONTRAST REASON FOR EXAM: Female, 83 years old. vertigo -- dizziness N/V, h/o L ear infection, h/o lymphoma TECHNIQUE: Standardized multiplanar fat and water weighted pulse sequences were obtained. COMPARISON: Head CT dated December 24, 2023. MRI of the brain dated March 25, 2022 FINDINGS: There is mild cerebral atrophy with widening of the extra-axial spaces and ventricular dilatation. There are multiple white matter hyperintensities, distributed throughout the deep white matter tracts of the cerebral hemispheres, consistent with moderate chronic white matter ischemic changes. There is no evidence for recent intracranial ischemia or other cause of cytotoxic edema on diffusion weighted imaging (DWI). Normal T2* images of the brain without demonstrated susceptibility artifact. There is no demonstrated hemosiderin stain. Severe left mastoid sinus opacification is present. Normal bilateral basal ganglia. Normal thalami. There is no extra-axial fluid accumulation. Normal flow voids within the major intracranial circulation suggesting patency by spin echo criteria. Normal sella turcica, pituitary gland, infundibular stalk, optic chiasm and hypothalamus. Normal tectal plate and pineal gland. Normal midbrain, ulisses and medulla. Normal cerebellum. Normal basal cisterns. Normal bilateral temporal bones. Normal bilateral internal auditory canals. No demonstrated orbital abnormality, within the constraints of a routine brain study. Normal visualized paranasal sinuses. Normal calvarium and skull base. Normal visualized soft tissue structures. Normal visualized upper cervical spine. MRI/Brain without Contrast IMPRESSION: 1. Involutional and chronic ischemic changes of the brain, as described above. 2. Severe left mastoiditis. Electronically Signed: Simone Almonte MD at 11:36 EDT Reading Location ID and State: [facility] / [place] , Service support ,
--- NOTE | 2023-12-25 05:55 | RAD_ITS ---
STUDY: X-RAY CHEST REASON FOR EXAM: Female, 83 years old. Intermediate nodular opacity in RLL TECHNIQUE: PA and lateral views of the chest. COMPARISON: Comparison is made with prior study dated December 24, 2023. FINDINGS: EKG electrodes are seen. Scattered calcified granulomas. There is blunting of the left costophrenic angle posteriorly. Mild left basilar atelectasis. Normal size heart. Normal mediastinum and hakan. Normal visualized pulmonary arteries. There is atherosclerotic calcification of the aortic arch with tortuosity. There are diffuse degenerative changes of the visualized thoracic spine. Increased kyphosis. Normal visualized ribs, clavicles, and shoulders. There is no demonstrated abnormality of the visualized soft tissue structures of the upper abdomen. RAD/Chest PA and Lateral IMPRESSION: Scattered calcified granulomas. Blunting of the left costophrenic angle with mild left basilar atelectasis. Electronically Signed: Javier Walden MD at 13:44 EDT ,
[2023-12-25 06:00] VITALS: BMI 38.5
[2023-12-25 06:28] LABS: Absolute Lymphocyte Count 0.62 X10^3/uL (0.83-4.51); Absolute Neutrophil Count 1.9 X10^3/uL (2.0-7.7); Basophil# 0.01 X10^3/uL; Basophil% 0.3 % (0-1); Eosinophil# 0.09 X10^3/uL; Eosinophils% 2.8 % (0-5); Hematocrit 32.5 % (37-47); Hemoglobin 10.2 g/dL (12.0-15.0); Lymphocyte # 0.62 X10^3/ul (0.83-4.51); Lymphocyte % 19.2 % (19-41); Mean Corp Hgb Conc 31.4 g/dL (32-36); Mean Corpuscular Hgb 31.3 pg (27.0-32.0); Mean Corpuscular Volume 99.7 fL (81-99); Mean Platelet Vol. 12.1 fl (6.2-12.0); Monocyte# 0.61 X10^3/uL; Monocyte% 18.9 % (0-10); NRBC Flagged by Analyzer 0 % (0-5); Neutrophil # 1.89 X10^3/uL (2.7-7.7); Neutrophil % 58.5 % (47-70); Platelet Count 104 K/mm3 (150-450); RBC Distribution Width SD 51.2 fl (35.1-43.9); Red Blood Count 3.26 M/mm3 (4.2-5.4); White Blood Count 3.2 K/mm3 (4.4-11.0)
[2023-12-25 07:01] LABS: Anion Gap 4 (5-15); BUN 19 mg/dL (7-18); BUN/Creat Ratio 27.7 RATIO (10-20); Calcium,Total 8.6 mg/dL (8.5-10.1); Chloride 114 mmol/L (98-107); Creatinine, Serum 0.69 mg/dL (0.55-1.02); EST Glomerular Filtration Rate 87 mL/min (>60); Est Glom Filt Rate - Afr Amer 105 mL/min (>60); Estimated Creatinine Clearance 50.74 ml/min; Glucose 99 mg/dL (74-106); Potassium 3.9 mmol/L (3.5-5.1); Sodium Level 143 mmol/L (136-145); Thyroid Stim Hormone (TSH) 0.04 uIU/mL (0.358-3.74)
--- NOTE | 2023-12-25 08:36 | PCM.PN.HOSP ---
Reason for Visit Reason for Visit: Diagnoses Syncope and collapse (12/24/23) Subjective Subjective Feeling well. Dizziness improved. Objective Data Objective Data Vital Signs: Vital Signs Temp Pulse Resp BP Pulse Ox O2 Del Method 36.7 C 70 16 154/61 H 95 Room Air 12/25/23 05:14 12/25/23 05:17 12/25/23 05:14 12/25/23 05:17 12/25/23 05:14 12/25/23 05:14 Oxygen Delivery Method Room Air Weight: 82.554 kg Body Mass Index (BMI) 38.0 Intake & Output: Intake and Output for Last 24 Hours 12/23/23 12/24/23 12/25/23 23:59 23:59 23:59 Intake Total 2240 / 2240 Balance 2240 / 2240 Lab / Micro Data 12/25/23 05:40 12/25/23 05:40 Labs: Laboratory Results - last 24 hr 12/24/23 09:35: WBC 3.3 L, RBC 3.73 L, Hgb 11.8 L, Hct 36.6 L, MCV 98.1, MCH 31.6, MCHC 32.2, RDW Std Deviation 50.3 H, RDW Coeff of Clair 13.8, Plt Count 113 L, MPV 12.1 H, Immature Gran % (Auto) 0.000, Neut % (Auto) 55.7, Lymph % (Auto) 22.3, [place] % (Auto) 17.4 H, Eos % (Auto) 4.0, Baso % (Auto) 0.6, Absolute Neuts (auto) 1.8 L, Absolute Lymphs (auto) 0.73 L, Nucleated RBC % 0, Sodium 143, Potassium 3.9, Chloride 109 H, Carbon Dioxide 28.0, Anion Gap 6, BUN 31 H, Creatinine 0.89, Estim Creat Clear Calc 45.71, Est GFR (MDRD) Af Amer 78, Est GFR (MDRD) Non-Af 64, BUN/Creatinine Ratio 34.9 H, Glucose 104, Calcium 9.4, Magnesium 2.2, Troponin I High Sens 7 12/24/23 13:13: Urine Color Yellow, Urine Clarity Clear, Urine pH 6.0, Ur Specific [place] 1.010, Urine Protein Negative, Urine Glucose (UA) Normal, Urine Ketones Negative, Urine Occult Blood 150 H, Urine Nitrite Negative, Urine Bilirubin Negative, Urine Urobilinogen Normal, Ur Leukocyte Esterase Negative, Urine RBC 0-5 SEEN, Urine WBC 0 SEEN, Ur Squamous Epith Cells 0-5 SEEN, Urine Bacteria 0 SEEN, Urine Mucus 0 SEEN 12/25/23 05:40: WBC 3.2 L, RBC 3.26 L, Hgb 10.2 L, Hct 32.5 L, MCV 99.7 H, MCH 31.3, MCHC 31.4 L, RDW Std Deviation 51.2 H, RDW Coeff of Clair 14.0, Plt Count 104 L, MPV 12.1 H, Immature Gran % (Auto) 0.300, Neut % (Auto) 58.5, Lymph % (Auto) 19.2, [place] % (Auto) 18.9 H, Eos % (Auto) 2.8, Baso % (Auto) 0.3, Absolute Neuts (auto) 1.9 L, Absolute Lymphs (auto) 0.62 L, Nucleated RBC % 0, Sodium 143, Potassium 3.9, Chloride 114 H, Carbon Dioxide 25.0, Anion Gap 4 L, BUN 19 H, Creatinine 0.69, Estim Creat Clear Calc 50.74, Est GFR (MDRD) Af Amer 105, Est GFR (MDRD) Non-Af 87, BUN/Creatinine Ratio 27.7 H, Glucose 99, Calcium 8.6, TSH 0.04 L Radiography Diagnostic Testing: Radiology Impression Brain CT 12/24/23 13:01 IMPRESSION: Mild opacification of the left mastoid air cells with a history of mastoiditis. Small vessel ischemia. Electronically Signed: Celia Mederos MD at 14:24 EDT Reading Location ID and State: [facility] / [place] Tel , Service support , Chest X-Ray 12/24/23 13:01 IMPRESSION: Indeterminate 1.7 cm nodular opacity within the right lower lung which may be secondary to a confluence of shadows however cannot exclude a nodule, recommend PA and lateral images or chest CT for further characterization. Electronically Signed: Celia Mederos MD at 14:03 EDT , Physical Exam Const alert and no apparent distress HEENT HEENT Narrative: no mastoid tenderness. Resp normal respiratory effort, no retractions, no use of accessory muscles and clear to auscultation bilaterally Cardio regular rate, regular rhythm, S1 normal heart sound and S2 normal heart sound GI normal to inspection, nondistended, normoactive bowel sounds, soft to palpation, non-tender and non-distended Extremity normal to inspection Neuro Sensorium / Orientation: awake and alert Assessment & Plan Assessment/Plan (1) Near syncope: PLAN: Plan Vertigo Suspected BPPV MRI brain negative. Orthostatic blood pressure tomorrow AM Mastoiditis Patient has had ear infections, tube in her ear. Currently, she has no mastoid tenderness nor any ear pain at this time on her left. Since she is currently asymptomatic, this may be correlated with the ear infection that she has had. Advised patient if she is having worsening ear pain, mastoid pain, not indicated where the mastoid is on her skull, to notify physician right away. 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 Patient used to follow oncologist Dr. Roberts. No acute issues. Continue home chemotherapy pill Chronic normocytic normochromic anemia and mild thrombocytopenia leukopenia, pancytopenia: H&H 11.8/36%. Platelet count 113,000. WBC count low. Pancytopenia related to chemotherapy will History of anemia: Currently H&H is stable. Hypertension: Continue home regimen including metoprolol, Blood pressure in acceptable limit. Hyperlipidemia: Continue home statin regimen. Hypothyroidism: Continue home synthroid regimen. TSH tomorrow AM. DVT Prophylaxis: SCDs, given acute presentation #1 with suspected gastritis/ulcer will defer chemoprophylaxis. CODE status: Full code.
[2023-12-25 11:06] VITALS: BP 128/78; PULSE 70; RESP 16; TEMP 36.7; O2SAT 96
[2023-12-25] MEDS: Cholecalciferol (VIT D3) 25 MCG TABLET (1,000 UNITS) PO (11:18)
[2023-12-25] MEDS: CIPROFLOXACIN HCL/DEXAMETH 7.5 ML DROPS.SUSP 5 ML OTIC (11:18)
[2023-12-25] MEDS: Carvedilol 25 MG Tablet PO (11:18)
[2023-12-25] MEDS: Cefdinir 300 MG Capsule PO (11:18)
[2023-12-25] MEDS: ACALABRUTINIB 100 MG PO (11:18)
--- NOTE | 2023-12-25 13:37 | DS.PCM_ITS ---
Providers Date of Admission: 12/24/23 Primary Care Physician: Dr. August Connor, DO Reason For Visit: DIZZINESS AND VERTIGO Diagnosis Discharge Diagnosis (1) Near syncope: Status: Acute Code(s): R55 - Syncope and collapse Plan Vertigo * Suspected BPPV * MRI brain negative. Orthostatic blood pressure tomorrow AM * As needed meclizine * Follow-up physical therapy for vestibular rehab. Mastoiditis * Patient has had ear infections, tube in her ear. Currently, she has no mastoid tenderness nor any ear pain at this time on her left. Since she is currently asymptomatic, this may be correlated with the ear infection that she has had. Advised patient if she is having worsening ear pain, mastoid pain, not indicated where the mastoid is on her skull, to notify physician right away. 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 Patient used to follow oncologist Dr. Roberts. No acute issues. Continue home chemotherapy pill * Chronic normocytic normochromic anemia and mild thrombocytopenia leukopenia, pancytopenia: H&H 11.8/36%. Platelet count 113,000. WBC count low. Pancytopenia related to chemotherapy will * History of anemia: Currently H&H is stable. * Hypertension: Continue home regimen including metoprolol, Blood pressure in acceptable limit. * Hyperlipidemia: Continue home statin regimen. * Hypothyroidism: Continue home synthroid regimen. TSH tomorrow AM. DVT Prophylaxis: SCDs, given acute presentation #1 with suspected gastritis/ulcer will defer chemoprophylaxis. CODE status: Full code. Medications at Discharge Home Medications atorvastatin 10 mg tablet 10 mg PO QHS cholesterol 08/18/19 liothyronine 25 mcg tablet 25 mcg PO QODAY thyroid 08/19/19 acalabrutinib maleate 100 mg tablet (Calquence (acalabrutinib maleate)) 100 mg PO Q12H 12/24/23 amlodipine 2.5 mg tablet 2.5 mg PO QHS 12/24/23 ascorbic acid (vitamin C) 100 mg chewable tablet 100 mg PO DAILY 12/24/23 carvedilol 25 mg tablet 25 mg PO BID 12/24/23 cefdinir 300 mg capsule 300 mg PO BID 12/24/23 cholecalciferol (vitamin D3) 25 mcg (1,000 unit) chewable tablet 25 mcg PO DAILY 12/24/23 ciprofloxacin 0.3 %-dexamethasone 0.1 % ear drops,suspension 5 drp otic (ear) BID 12/24/23 levothyroxine 125 mcg tablet 125 mcg PO WETH 12/24/23 levothyroxine 50 mcg tablet 50 mcg PO SUMOTUFRSA 12/24/23 magnesium citrate 100 mg capsule 100 mg PO DAILY 12/24/23 meclizine 25 mg tablet 25 mg PO 4X/DAY PRN PRN Dizziness #20 tabs 12/24/23 Hospital Course Operations None Procedures None Summary of Care Provided Minutes Spent on Discharge: 32 Hospital Course: Patient presents with acute dizziness. Symptoms were consistent with benign paroxysmal positional vertigo. Patient did have an MRI of her brain to rule out a posterior circulation stroke. That was negative for stroke however, did show left-sided mastoiditis. Patient he is not having pain, fever or chills and on exam had no reproducible left mastoid tenderness. Patient states that she has been treated for ear infections which is ongoing and does see Dr. George for this. She does have tympanic tubes as well. Suspected this is more of a chronic finding rather than acute as she is currently asymptomatic, however, I did recommend if she is having pain in that region or in her ear or fevers chills, notify physician as it could be a sign of acute mastoiditis. Weight / BMI Weight Weight: 83.6 kg Body Mass Index (BMI) 38.5 ABG / Lab / Microbiology Data 12/25/23 05:40 12/25/23 05:40 Laboratory: Laboratory Results - last 24 hr 12/24/23 09:35: Magnesium 2.2, Troponin I High Sens 7 12/24/23 13:13: Urine Color Yellow, Urine Clarity Clear, Urine pH 6.0, Ur Specific [place] 1.010, Urine Protein Negative, Urine Glucose (UA) Normal, Urine Ketones Negative, Urine Occult Blood 150 H, Urine Nitrite Negative, Urine Bilirubin Negative, Urine Urobilinogen Normal, Ur Leukocyte Esterase Negative, Urine RBC 0-5 SEEN, Urine WBC 0 SEEN, Ur Squamous Epith Cells 0-5 SEEN, Urine Bacteria 0 SEEN, Urine Mucus 0 SEEN 12/25/23 05:40: WBC 3.2 L, RBC 3.26 L, Hgb 10.2 L, Hct 32.5 L, MCV 99.7 H, MCH 31.3, MCHC 31.4 L, RDW Std Deviation 51.2 H, RDW Coeff of Clair 14.0, Plt Count 104 L, MPV 12.1 H, Immature Gran % (Auto) 0.300, Neut % (Auto) 58.5, Lymph % (Auto) 19.2, Cooper % (Auto) 18.9 H, Eos % (Auto) 2.8, Baso % (Auto) 0.3, Absolute Neuts (auto) 1.9 L, Absolute Lymphs (auto) 0.62 L, Nucleated RBC % 0, Sodium 143, Potassium 3.9, Chloride 114 H, Carbon Dioxide 25.0, Anion Gap 4 L, BUN 19 H , Creatinine 0.69, Estim Creat Clear Calc 50.74, Est GFR (MDRD) Af Amer 105, Est GFR (MDRD) Non-Af 87, BUN/Creatinine Ratio 27.7 H, Glucose 99, Calcium 8.6, TSH 0.04 L Radiography Diagnostic Testing: Radiology Impression Brain CT 12/24/23 13:01 IMPRESSION: Mild opacification of the left mastoid air cells with a history of mastoiditis. Small vessel ischemia. Electronically Signed: Celia Mederos MD at 14:24 EDT Reading Location ID and State: [facility] / [place] Tel , Service support , Chest X-Ray 12/24/23 13:01 IMPRESSION: Indeterminate 1.7 cm nodular opacity within the right lower lung which may be secondary to a confluence of shadows however cannot exclude a nodule, recommend PA and lateral images or chest CT for further characterization. Electronically Signed: Celia Mederos MD at 14:03 EDT , Brain MRI 12/25/23 05:55 IMPRESSION: 1. Involutional and chronic ischemic changes of the brain, as described above. 2. Severe left mastoiditis. Electronically Signed: Simone Almonte MD at 11:36 EDT Reading Location ID and State: [address] [place] [address] , Service support , D/C Instructions Discharge Diet: No restrictions Meaningful Use Info Meaningful Use Meaningful Use Diagnoses (Choose all that apply): None applicable Ischemic Stroke Statin Dosing Therapy Reference: STATIN DOSE THERAPY REFERENCE: * Patients > 75 years receive moderate or high dose statin therapy. * Patients 75 years or YOUNGER should receive HIGH intensity statin dose unless contraindicated. You will be required to document reason for non-treatment if statin daily dose does not meet guidelines. HIGH DOSE STATIN THERAPY DAILY Atorvastatin > than or = to 40 mg Rosuvastatin > than or = to 20 mg Amlodipine + Atorvastatin > than or = to 2.5/40 mg Ezetimibe + Simvastatin 10/80 mg Simvastatin 80mg Discharge Plan Admission Admit Date/Time: 12/24/23 16:08 Primary Reason for Your Visit: Vertigo Attending Provider: Lazaro Miller Primary Care Provider: August Connor Consulting Providers: Steve Crook Instructions Patient Instructions: ED BPV Vertigo Additional Instructions / Restrictions: You have a vertigo. Symptoms are better. This is consistent with benign vertigo. Generally the symptoms resolve on their own. You can take meclizine (Antivert) to help with symptoms. You may also follow-up with physical therapy to do a special type of therapy called vestibular rehab. Additionally you may benefit from looking up videos on the Hector maneuver in case this were to happen again that you could treat this at home. On your MRI did not show any stroke but did show mastoiditis. Do not have any symptoms at present. This may be related to prior ear infections that you have had. Follow-up with Dr. Norton at your next appointment in February. If you have a worsening ear pain, pain in the mastoid, the area of bone sitting below your ear, let physician know she may need to be put on antibiotics. Discharge Orders/Prescriptions Prescriptions: New meclizine 25 mg tablet 25 mg PO 4X/DAY PRN PRN (Reason: Dizziness) Qty: 20 0RF Continued atorvastatin 10 MG tablet 10 mg PO QHS Hold Instructions: Resume on 06/15/22. liothyronine 25 MCG tablet 25 mcg PO QODAY Calquence (acalabrutinib mal) 100 mg tablet 100 mg PO Q12H levothyroxine 125 mcg tablet 125 mcg PO WETH levothyroxine 50 mcg tablet 50 mcg PO SUMOTUFRSA carvedilol 25 mg tablet 25 mg PO BID amlodipine 2.5 mg tablet 2.5 mg PO QHS cefdinir 300 mg capsule 300 mg PO BID Patient Comments: PT STATES TOMORROW ( 12/25/23)` IS LAST DAY ciprofloxacin-dexamethasone 0.3-0.1 % drops,suspension 5 drp otic (ear) BID Rx Instructions: LEFT EAR ascorbic acid (vitamin C) 100 mg tablet,chewable 100 mg PO DAILY magnesium citrate 100 mg capsule 100 mg PO DAILY cholecalciferol (vitamin D3) 25 mcg (1,000 unit) tablet,chewable 25 mcg PO DAILY Other Ambulatory Orders: Physical Therapy Evaluation (Routine) Location: None Selected Ordered By: Dr. Lazaro Miller Referrals / Follow Up: August Connor DO [Primary Care Provider] - Within 2 Weeks Preston George MD [Med Staff - Active Staff] - See Referral Note (in February) Disposition Disposition (needs filled in before D/C Order can be placed): Home, Self Care Charges/Coding Visit Charges Inpatient E&M: 04626 Disch Hosp >30min
[2023-12-25 13:53] VITALS: BP 132/48; PULSE 74; RESP 16; TEMP 36.6; O2SAT 96
--- NOTE | 2023-12-25 14:15 | CASEMGMT ---
Patient has order for discharge. RN CM in to discuss needs at discharge. Patient lives with and has cane at home. Patient denies needs or help at discharge. Patient had no further questions or concerns.
--- NOTE | 2023-12-25 14:56 | PHA.DC.MC.R ---
Pharmacy [facility] has performed discharge medication reconciliation and counseling for this patient. 1. MECLIZINE 25MG PO 4X/DAY PRN DIZZINESS The patient's discharge medication list was reviewed for discrepancies and discrepancies were resolved. The patient was counseled on the following discharge medications and changes in medications for homegoing were reviewed. The Reason for Use, instructions for use, and potential side effects were reviewed for all new medications. The patient's questions regarding all of their medications were answered. The patient was able to verbally demonstrate an understanding of their discharge medications. Medications at Discharge Home Medications atorvastatin 10 mg tablet 10 mg PO QHS cholesterol 08/18/19 liothyronine 25 mcg tablet 25 mcg PO QODAY thyroid 08/19/19 acalabrutinib maleate 100 mg tablet (Calquence (acalabrutinib maleate)) 100 mg PO Q12H chemo med 12/24/23 amlodipine 2.5 mg tablet 2.5 mg PO QHS BP 12/24/23 ascorbic acid (vitamin C) 100 mg chewable tablet 100 mg PO DAILY supplement 12/24/23 carvedilol 25 mg tablet 25 mg PO BID BP 12/24/23 cefdinir 300 mg capsule 300 mg PO BID antibiotic 12/24/23 cholecalciferol (vitamin D3) 25 mcg (1,000 unit) chewable tablet 25 mcg PO DAILY vitamin 12/24/23 ciprofloxacin 0.3 %-dexamethasone 0.1 % ear drops,suspension 5 drp otic (ear) BID 12/24/23 levothyroxine 125 mcg tablet 125 mcg PO WETH thyroid 12/24/23 levothyroxine 50 mcg tablet 50 mcg PO SUMOTUFRSA thyroid 12/24/23 magnesium citrate 100 mg capsule 100 mg PO DAILY laxative 12/24/23 meclizine 25 mg tablet 25 mg PO 4X/DAY PRN PRN Dizziness #20 tabs 12/24/23
== END 2023-12-25 13:43 | disposition home or self-care (01) ==
LOC: ED 15:36 → PCU 16:30
PROVIDERS: Admitting Provider Internal Medicine; Emergency Provider Student in an Organized Health Care Education/Training Program; PCP Student in an Organized Health Care Education/Training Program
DX: R55 Syncope and collapse (principal); D61.818 Other pancytopenia; M06.9 Rheumatoid arthritis, unspecified; R11.0 Nausea; E78.5 Hyperlipidemia, unspecified; I10 Essential (primary) hypertension; H35.30 Unspecified macular degeneration; H70.92 Unspecified mastoiditis, left ear; R42 Dizziness and giddiness; Z85.72 Personal history of non-Hodgkin lymphomas; E03.9 Hypothyroidism, unspecified; Z79.899 Other long term (current) drug therapy; Z79.890 Hormone replacement therapy
CPT/HCPCS: 36415; 70450; 70551; 71045; 71046; 80048; 81001; 83735; 84443; 84484; 85025; 93005; 94668; 96361; 96372; 96374; 99221; 99284; J7030; A4216; G0378; J2405

== ENCOUNTER → 2024-05-29 | Outpatient (CLI) | payer MEDICARE, OTHER, SELFPAY | END | disposition home or self-care (01) | LOC: SL 19:45 | PROVIDERS: PCP Student in an Organized Health Care Education/Training Program; Referring Provider Student in an Organized Health Care Education/Training Program; Visit Provider Student in an Organized Health Care Education/Training Program | DX: G47.33 Obstructive sleep apnea (adult) (pediatric) (principal) | CPT/HCPCS: 95811 ==

== ENCOUNTER → 2024-08-06 | Outpatient (CLI) | payer MEDICARE, OTHER, SELFPAY ==
--- NOTE | 2024-08-06 09:26 | EKG12_ITS ---
Test Reason : PRE OP Blood Pressure : */* mmHG Vent. Rate : 65 BPM Atrial Rate : 65 BPM P-R Int : 154 ms QRS Dur : 88 ms QT Int : 400 ms P-R-T Axes : 11 -7 39 degrees QTcB Int : 416 ms Normal sinus rhythm Normal ECG Confirmed by LUCRECIA AGUSTIN, ERNESTINE ([id number]), brands editor VIDAL FITZPATRICK ([id number]) on 08/07/2024 6:05:55 AM Referred By: Preston George Confirmed By: ERNESTINE SINGER MD
[2024-08-06 09:53] LABS: Hematocrit 35.4 % (37-47); Hemoglobin 11.5 g/dL (12.0-15.0); Mean Corp Hgb Conc 32.5 g/dL (32-36); Mean Corpuscular Hgb 32.3 pg (27.0-32.0); Mean Corpuscular Volume 99.4 fL (81-99); Mean Platelet Vol. 11.9 fl (6.2-12.0); Platelet Count 124 K/mm3 (150-450); RBC Distribution Width CV 14.1 % (11.6-14.6); Red Blood Count 3.56 M/mm3 (4.2-5.4); White Blood Count 3.6 K/mm3 (4.4-11.0)
[2024-08-06 10:17] LABS: Anion Gap 4 (5-15); BUN 24 mg/dL (7-18); BUN/Creat Ratio 28.6 RATIO (10-20); Calcium,Total 9.5 mg/dL (8.5-10.1); Chloride 111 mmol/L (98-107); Creatinine, Serum 0.84 mg/dL (0.55-1.02); EST Glomerular Filtration Rate 69 mL/min (>60); Est Glom Filt Rate - Afr Amer 83 mL/min (>60); Glucose 90 mg/dL (74-106); Potassium 4.4 mmol/L (3.5-5.1); Sodium Level 142 mmol/L (136-145)
== END | disposition home or self-care (01) ==
LOC: PSN 09:23
PROVIDERS: PCP Student in an Organized Health Care Education/Training Program; Referring Provider Otolaryngology; Visit Provider Otolaryngology
DX: Z01.810 Encounter for preprocedural cardiovascular examination (principal)
CPT/HCPCS: 36415; 80048; 85027; 93005

== ENCOUNTER → 2025-03-18 | Outpatient (CLI) | payer MEDICARE, OTHER, SELFPAY | END | disposition home or self-care (01) | PROVIDERS: PCP Student in an Organized Health Care Education/Training Program; Referring Provider Otolaryngology; Visit Provider Otolaryngology | DX: J02.9 Acute pharyngitis, unspecified (principal) | CPT/HCPCS: 87070 ==